=== PATIENT | male | born 1955 | race Caucasian/White ===

== ENCOUNTER 2018-11-19 08:32 | Outpatient (CLI) | payer BC, SELFPAY ==
[2018-11-19 09:52] LABS: HCT 44.3 % (40.0-50.0); HGB 15.2 g/dL (13.5-17.5); Mean Corp. HGB Concentration 34.3 g/dL (32.0-36.0); Mean Corpuscular Hemoglobin 30.2 pg (27.0-33.0); Mean Corpuscular Volume 87.9 fL (80-95); Mean Platelet Volume 9.9 fL (8.0-11.0); Platelet Count 207 x1000/uL (130-400); RBC 5.04 m/cumm (4.50-6.00); RBC Distribution Width 13.9 % (11.8-14.1); White Blood Cell Count 4.53 k/cumm (4.4-10.8)
[2018-11-19 10:09] LABS: ALT 22 U/L (12-78); AST 17 U/L (15-37); Albumin 3.9 g/dL (3.4-5.0); Alkaline Phosphatase 32 U/L (46-116); Anion Gap 6.7 mmol/L (3-11); BUN 20 mg/dL (7-18); Bilirubin, Total 0.9 mg/dL (0.2-1.0); CO2 31.3 mmol/L (21.0-32.0); CREATININE 1.03 mg/dL (0.70-1.30); Calcium 9.3 mg/dL (8.5-10.1); Chloride 107 mmol/L (98-107); Cholesterol 178 mg/dL (50-200); Glucose 89 mg/dL (70-100); HDL Cholesterol 50 mg/dL (40-60); LDL CHOLESTEROL 118 mg/dL (<100); Potassium 4.4 mmol/L (3.5-5.1); Sodium 145 mmol/L (136-145); Total Protein 6.6 g/dL (6.4-8.2); Triglyceride 56 mg/dL (30-150)
== END 2018-11-19 08:52 ==
PROVIDERS: PCP Nurse Practitioner; Visit Provider Nurse Practitioner
DX: Z00.00 Encounter for general adult medical examination without abnormal findings (principal); E78.00 Pure hypercholesterolemia, unspecified
CPT/HCPCS: 36415; 80053; 80061; 83721; 85027

== ENCOUNTER 2019-02-21 09:13 | Day surgery (SDC) | payer BC, SELFPAY ==
--- NOTE | 2019-02-21 06:59 | W.COLOREPORT ---
Date of service: 02/21/19 Time of Service: 10:01 Colonoscopy Report Date of procedure: 02/21/19 Pre-op diagnosis general: Positive Cologuard Post-op diagnosis procedure note: other (colorectal polyps x3) Procedure: Colonoscopy with polypectomy Surgeon: Beverly Barry Anesthesia proc note operative: other (General/ ASA 2/ Carlos Walsh CRNA) Estimated blood loss (mL): 3 Pathology: other (Ascending colon P, Transverse Polyp, rectal polyp) Complications: None Disposition: no change Indications: Mr. Fernandes is a pleasant 63 year old female who is here today for a colonoscopy. He had a Cologuard test which was positive. Risks, benefits and complications have been reviewed. Complications include but are not limited to bleeding, pain, perforation, missed small lesion/polyp, sore throat, aspiration and adverse reaction to the medications. Questions were entertained and answered to their satisfaction and they wished to proceed. No guarantees were given or implied. Prep: Miralax/Dulcolax Procedure Start Time: 10:01 Procedure End Time: 10:32 Retraction Time: 23 minutes Findings: # polyps found. Procedure Description: After informed consent was obtained the patient was taken to the procedure room and placed in a left decubitous position. Monitors were applied and a time out was done. The patients name, date of , procedure, allergies to medications and metal in their body was reviewed. The patient was then sedated. Once sedated and comfortable a rectal exam was done. External exam was normal. Internal exam revealed a normal sphincter tone and no palpable masses. The prostate felt smooth. The scope was then introduced and retro-flexed. Grade 1 internal hemorrhoids were identified. There was one rectal polyp identified. The scope was then advanced to the cecum without difficulty. The TI and appendiceal orifice were identified. The prep was adequate. The scope was then slowly retracted over 23 minutes back into the rectum. Polyps were removed with cold forceps in the Transverse colon and rectum and with a hot snare in the Ascending colon. The scope was removed and the patient was woken up and taken back to Same day surgery in stable condition. The patient tolerated the procedure well and there were no immediate complications. Follow up: The patient should follow up in 3-5 years unless they develop changes in bowel habits or other new gastrointestinal complaints.
--- NOTE | 2019-02-21 07:01 | W.PM.DSUDISC ---
Discharge Plan Disposition Patient Disposition: HOME Condition: Good Discharge Details Reason For Visit: Colonoscopy Attending Provider: Beverly Barry Primary Care Provider: Bee Velazquez Home Meds and New Rx's Prescriptions: Continued Lumigan 0.01 % drops 1 drp OP QPM RF: 0 Discontinued polyethylene glycol 3350 17 gram/dose powder 238 g PO ONCE Qty: 238 RF: 0 bisacodyl [Dulcolax (bisacodyl)] 5 mg tablet,delayed release (DR/EC) 5 mg PO ONCE Qty: 4 RF: 0 Discharge Instructions Instructions: Colonoscopy (DC), Colorectal Polyps (DC), Hemorrhoids (DC) Activity:: Activity as Tolerated Diet:: High Fiber Diet Discharge Orders Discharge Orders: Discharge Order (Routine); Ordered 02/21/19 Ordered By: Beverly Barry DS: Diagnosis Discharge Diagnosis (1) S/P colonoscopy: Status: Acute (2) Colorectal polyps: Status: Acute (3) Internal hemorrhoids without complication: Status: Acute
[2019-02-21 09:28] VITALS: BP 111/76; PULSE 87; RESP 16; TEMP 36.5; O2SAT 100
[2019-02-21] MEDS: Lactated Ringers 1,000 ML 80 ML IV (09:30)
[2019-02-21 09:34] VITALS: BP 111/76; PULSE 87; RESP 16; TEMP 36.5; O2SAT 100
--- NOTE | 2019-02-21 10:08 | BOWEL_PTH ---
PATIENT: Kentrell Fernandes JR LOC: [facility] U#:[id number] AGE/SX: 63/M ROOM: RE02/21/[address]: Beverly Barry MD : 1955 BED: DIS: 02/21/2019 SPEC #: [id number] RECD: 02/21/19 12:58 STATUS: THAO REQ #: [id number] FREDY: 02/21/19 10:[address]: Beverly Barry DEPT: Surgical Specimen RECD BY: Michelle Arriola ENTERED: 02/21/19 12:59 SP TYPE: Bowel OTHR DR: Bee Velazquez APRN Tissues: 1 - BIOPSY BOWEL 2 - BIOPSY BOWEL 3 - BIOPSY BOWEL Procedures: GROSS AND MICRO LEVEL 4 Comments: [id number]
[2019-02-21 11:05] VITALS: BP 108/66; PULSE 62; RESP 16; TEMP 35.9; O2SAT 99
== END 2019-02-21 11:44 | disposition home or self-care (01) ==
LOC: SUR 09:14
PROVIDERS: PCP Nurse Practitioner; Visit Provider Surgery
PROC: 0DJD8ZZ Inspection of Lower Intestinal Tract, Via Natural or Artificial Opening Endoscopic (ICD-10-PCS; CPT 45378; principal; 2019-02-21 10:30)
DX: Z12.11 Encounter for screening for malignant neoplasm of colon; R19.5 Other fecal abnormalities; K64.0 First degree hemorrhoids; D12.2 Benign neoplasm of ascending colon; D12.3 Benign neoplasm of transverse colon; D12.8 Benign neoplasm of rectum
CPT/HCPCS: 45385; 45380; 88305

== ENCOUNTER 2022-04-23 03:22 | Outpatient (CLI) | payer MEDICARE, OTHER, SELFPAY ==
[2022-04-23 08:58] LABS: ALT 37 U/L (16-63); AST 20 U/L (15-37); Alkaline Phosphatase 29 U/L (46-116); BUN 20 mg/dL (7-18); Bilirubin, Total 0.9 mg/dL (0.2-1.0); CREATININE 0.9 mg/dL (0.70-1.30); Calculated LDL 121 mg/dL (<100); Chloride 107 mmol/L (98-107); Cholesterol 195 mg/dL (<200); Glucose 93 mg/dL (74-106); HDL Cholesterol 60 mg/dL (40-60); Potassium 3.9 mmol/L (3.5-5.1); Sodium 143 mmol/L (136-145); Total Protein 6.9 g/dL (6.4-8.2); Triglyceride 71 mg/dL (<150)
== END 2022-04-23 03:23 | disposition home or self-care (01) ==
LOC: LBO 03:22
PROVIDERS: PCP Nurse Practitioner; Visit Provider Nurse Practitioner
DX: E78.5 Hyperlipidemia, unspecified (principal); R42 Dizziness and giddiness; Z13.220 Encounter for screening for lipoid disorders
CPT/HCPCS: 36415; 80053; 80061

== ENCOUNTER → 2022-05-13 00:54 | Outpatient (CLI) | payer MEDICARE, OTHER, SELFPAY ==
--- NOTE | 2022-05-13 06:45 | DI.US_ITS ---
Exam(s) US AAA SCREENING EXAM: US AAA SCREENING CLINICAL HISTORY: screen AAA, Z13.6, encounter for screening cardiovascular disorder TECHNIQUE: Ultrasound performed using standard protocol. COMPARISON: No exams were available for comparison FINDINGS: Ultrasound examination of the abdomen was performed utilizing limited protocol for evaluation of abdo mansi aorta. There is no abdominal aortic aneurysm. Right and left common iliac artery are within n ormal limits in diameter. There is no retroperitoneal fluid collection. IMPRESSION: No evidence of abdominal aortic aneurysm. DATA REPOSITORY:
== END ==
PROVIDERS: PCP Nurse Practitioner; Visit Provider Nurse Practitioner
DX: Z13.6 Encounter for screening for cardiovascular disorders (principal)
CPT/HCPCS: 76706

== ENCOUNTER → 2022-07-16 13:39 | Outpatient (BNVA) | payer MEDICARE, OTHER, SELFPAY | PROVIDERS: PCP Nurse Practitioner; Referring Provider Nurse Practitioner; Visit Provider Surgery | DX: K61.1 Rectal abscess (principal) | CPT/HCPCS: 10060; 99203 ==

== ENCOUNTER → 2022-08-21 14:23 | Outpatient (BNVA) | payer MEDICARE, OTHER, SELFPAY | PROVIDERS: PCP Nurse Practitioner; Referring Provider Nurse Practitioner; Visit Provider Physical Therapy Assistant | DX: Z12.11 Encounter for screening for malignant neoplasm of colon (principal); Z86.010 Personal history of colon polyps ==

== ENCOUNTER 2022-09-04 10:35 | Day surgery (SDC) | payer MEDICARE, OTHER, SELFPAY ==
--- NOTE | 2022-09-03 16:22 | W.PM.DSUDISC ---
Date of service: 09/04/22 Time of Service: 12:48 Discharge Plan Disposition Patient Disposition: Home Condition: Good Discharge Details Reason For Visit: Screening colonoscopy Attending Provider: Leo Fletcher Primary Care Provider: Bee Velazquez Home Meds and New Rx's Prescriptions: Continued latanoprost 0.005 % drops 1 drp ophthalmic (eye) DAILY Rx Instructions: both eyes for glucoma bisacodyl [Dulcolax (bisacodyl)] 5 mg tablet,delayed release (DR/EC) 5 mg PO ONCE Qty: 4 0RF Rx Instructions: take per colonoscopy instructions Discontinued polyethylene glycol 3350 17 gram/dose powder 238 g PO ONCE Qty: 238 0RF Rx Instructions: take per colonoscopy instructions bisacodyl [Dulcolax (bisacodyl)] 5 mg tablet,delayed release (DR/EC) 5 mg PO ONCE Qty: 4 0RF Rx Instructions: take per colonoscopy instructions polyethylene glycol 3350 17 gram/dose powder 238 g PO ONCE Qty: 238 0RF Rx Instructions: take per colonoscopy instructions Discharge Instructions Instructions: Hemorrhoids (GEN), Colorectal Polyps (DC) Additional Instructions: 1. If tolerated, consume a soft, low fiber diet for 1-2 days. 2[address] Do not drive, drink alcohol, operate machinery, make critical decisions, or do activities that require coordination or balance for 24 hours. 3. Because air was put into your colon during the procedure, expelling air from your rectum (passing gas or farting) is normal. 4. You may not have a bowel movement for 1-3 days because of the colonoscopy prep. This is normal. 5. Go directly to the emergency room if you notice any of the following: Develop chills (warm to touch), or if you have a thermometer and your temperature is above 101 Difficulty breathing or difficultly swallowing Persistent vomiting Severe abdominal pain, other than gas cramps Severe chest pain Black, tarry stools Any bleeding ? exceeding one tablespoon 6. Call your physician if the site where your intravenous was started becomes red, swollen, painful, and warm to touch. 7. Your physician has reviewed your pre-procedure medications. Please continue to take those medications as previously ordered. You will be given specific information/education regarding any changes to your medications before leaving. Activity:: Activity as Tolerated Diet:: As Tolerated Discharge Orders Discharge Orders: Discharge Order (Routine); Ordered 09/03/22 Ordered By: Leo Fletcher DS: Diagnosis Discharge Diagnosis (1) Colorectal polyps: Status: Acute Asessment and Plan: I will contact you with results of the pathology report on the 2 polyps once that is available. You have some internal hemorrhoids, continue with basic hemorrhoid care.
--- NOTE | 2022-09-03 16:23 | W.COLOREPORT ---
Date of service: 09/04/22 Time of Service: 12:48 Colonoscopy Report Date of procedure: 09/04/22 Pre-op diagnosis general: Routine health maintenance screening colonoscopy Procedure: Colonoscopy Surgeon: Leo Fletcher Anesthesia Type: General:No Airway Complications: None Disposition: same day Prep: Miralax/Dulcolax Procedure Start Time: 12:13 Procedure End Time: 13:38 Retraction Time: 14 Findings: Internal hemorrhoid, polyps at 45 cm and 20 cm Procedure Description: After the induction of monitored anesthetic care, and with the patient in left lateral decubitus position, I began by performing an anorectal exam under anesthesia.? Perineum and skin were normal, as was the anal verge.? There was no evidence of external hemorrhoids.? There was a prolapsed internal hemorrhoid that was easily reduced. I performed a digital rectal exam and felt the internal hemorrhoid. Otherwise it felt normal. Next, using a fiberoptic anoscope, I completely examined the anal verge dentate line and distal rectum. Aside from the hemorrhoid, there was no other pathology. I did not see any evidence of fistula in ano.? Next, I advanced a colonoscope into the rectal vault.? I performed retroflexion.? Again, there was a dominant internal hemorrhoid in the right posterior column.? Using insufflation, I then advanced the colonoscope beyond the rectal folds and into the sigmoid colon before advancing towards the cecum.? The quality of the prep was asked.? The scope was noted to be in the cecum by identification of the ileocecal valve and appendiceal orifice.? I then began withdrawing the colonoscope using repeated irrigation as necessary for full evaluation of the colonic mucosa. Around 45 cm from the anal verge I identified a 0.25 cm polyp. ?It appeared sessile in character. ?I was able to remove this with a cold forcep polypectomy. ?I examined the site, and there was minimal bleeding. ?Once this was completed, I continued to withdraw the scope and examine the remainder of the colonic mucosa.?Around 20 cm from the anal verge I identified a 0.5 cm polyp. ?It appeared pedunculated in character. ?I was able to remove this with a cold forcep polypectomy. ?I examined the site, and there was minimal bleeding. ?Once this was completed, I continued to withdraw the scope and examine the remainder of the colonic mucosa. Once the scope was withdrawn to the level of the rectum, great care was taken to examine portions of the rectal folds.? Finally, the scope was withdrawn and the patient was brought to the same-day surgery recovery unit as the anesthetic wore off. ?The findings and instructions were shared with the patient prior to discharge.
[2022-09-04 11:02] VITALS: BP 126/79; PULSE 70; RESP 16; TEMP 36.3; O2SAT 99
--- NOTE | 2022-09-04 11:37 | W.ANESPRE ---
General Info Date of Service Date Performed: 09/04/22 Height: 5 ft 9 in Weight: 74.6 kg Body Mass Index (BMI): 24.3 Surgical Procedure: Operation Date: 09/04/22 12:10 Proposed Procedure Side Surgeon p Exam Under Anesthesia Leo Fletcher MD s Colonoscopy Leo Fletcher MD Meds Allergies and Home Medications Allergies Allergy/AdvReac Type Severity Reaction Status Date / Time No Known Drug Allergies Allergy Verified 09/04/22 11:02 Home Medication Medication Instructions Recorded latanoprost 0.005 % eye drops 1 drp ophthalmic (eye) DAILY 04/16/22 bisacodyl 5 mg tablet,delayed 5 mg PO ONCE colonscopy bowel prep 08/25/22 release (Dulcolax (bisacodyl)) #4 tabs Current Visit Medications: Current Medications Generic Name Dose Route Start Last Admin Trade Name Freq PRN Reason Stop Dose Admin Hyoscyamine Sulfate 0.125 mg 09/03/22 16:24 Hyoscyamine 0.125 Mg Sl/Oral/Chew SL DIRECTED PRN Ringer's Solution 1,000 mls @ 80 mls/hr 09/04/22 06:00 IV 10/03/22 23:59 INFUSION [facility] IV Miscellaneous Supplies 1 each 09/04/22 06:00 Iv Access IV 10/03/22 23:59 DIRECTED [place] Ondansetron HCl 4 mg 09/03/22 16:24 Ondansetron 4 Mg/2 Ml Vial IVP Q4H PRN PRN Nausea / Vomiting Sodium Chloride 0 ml 09/04/22 06:00 Normal Saline Flush 10 Ml Syr IV 10/03/22 23:59 PRN PRN Sodium Chloride 0 ml 09/04/22 06:00 Normal Saline 10 Ml Vial IJ 10/03/22 23:59 DIRECTED PRN Sterile Water 0 ml 09/04/22 06:00 Water,Injection,Sterile 10 Ml Vial IJ 10/03/22 23:59 DIRECTED PRN PFSH Active Problems Active Problems: Problem Status Onset Code 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 Encounter for routine history and physical examination Z00.00 Tubular adenoma 02/2019 D36.9 Internal hemorrhoids without complication K64.8 Colorectal polyps K63.5 S/P colonoscopy ~02/21/19 Z98.890 Positive colorectal cancer screening using Cologuard test R19.5 Glaucoma H40.9 Disequilibrium 09/03/15 R42 Hyperlipidemia 02/15/13 E78.5 Sensorineural hearing loss, bilateral 09/03/15 H90.3 Medical History Medical History 4-quinolones overdose (02/15/13) Recovering alcoholic in remission Surgical History Surgical History Hx of hernia repair Tobacco Smoking/Tobacco Use Status: Never Alcohol Alcohol Intake: former Year quit: Substance Use Substance use: Never Substance use type: does not use Vital Signs and Lab Results Vital Signs Most Recent Vital Signs in EMR: Most Recent Vital Signs Temp Pulse Resp BP Pulse Ox 36.3 C L 70 16 126/79 99 09/04/22 11:02 09/04/22 11:02 09/04/22 11:02 09/04/22 11:02 09/04/22 11:02 Lab Results Blood Type / Crossmatch: No Data to Display Complete Blood Count: No Data to Display Complete Metabolic Panel: No Data to Display Liver Function Panel: No Data to Display Coagulation Panel: No Data to Display Cardiac Panel: No Data to Display Arterial Blood Gas: No Data to Display Venous Blood Gas: No Data to Display Pancreas Panel: No Data to Display Thyroid Panel: No Data to Display Infectious Disease: No Data to Display Blood Cultures: No Data to Display Toxicology Panel: No Data to Display Anesthesia Assessment and Plan Anesthesia History Personal History: No History of Anesthesia Complications Family History: No Family History of Anesthesia Complications Exercise Tolerance Exercise Tolerance: Metabolic Equivalents>4 Pertinent Negatives Pertinent Negatives: No Symptoms of GERD, No Major Cardiovascular Symptoms or Complaints and No Major Pulmonary Symptoms or Complaints Cardiac & Pulmonary Exam Cardiac Exam: Normal S1/S2 Heart Sounds Pulmonary Exam: Clear Bilateral Breath Sounds Implantable Cardiac Device Does patient have a Pacemaker or an ICD?: No Airway Exam Known Difficult Airway: No Mallampati Class: 2 Mouth Opening: Normal (> 3cm) Thyromental Distance: Greater than 3 cm Neck Range of Motion: Full ROM Neck Circumference: Normal Teeth Condition: Normal Dentition ASA Classification ASA Score: ASA 2 Emergency Case?: No NPO Status NPO Status: NPO Clears >2 hours, Solids >8 hours Anesthesia Plan Resuscitation Status: Full Code Anesthesia Technique: General Anesthesia Airway Planned: Natural Airway Monitors Used: Standard Monitors
[2022-09-04 11:40] VITALS: BMI 24.3
[2022-09-04] MEDS: Lactated Ringers 1,000 ML 80 ML IV (11:50)
--- NOTE | 2022-09-04 12:31 | BOWEL_PTH ---
PATIENT: Kentrell Fernandes JR LOC: [facility] U#:[id number] AGE/SX: 67/M ROOM: RE09/04/[address]: Leo Fletcher MD : 1955 BED: DIS: 09/04/2022 SPEC #: [id number] RECD: 09/04/22 13:02 STATUS: THAO RE #: [id number] FREDY: 09/04/22 12:[address]: Leo Fletcher DEPT: Surgical Specimen RECD BY: Michelle Arriola ENTERED: 09/04/22 13:03 SP TYPE: Bowel OTHR DR: Bee Velazquez APRN Tissues: 1 - BIOPSY BOWEL 2 - BIOPSY BOWEL Procedures: GROSS AND MICRO LEVEL 4 Comments: [id number]
[2022-09-04 12:45] VITALS: BP 108/77; PULSE 60; RESP 16; TEMP 36.4; O2SAT 98
[2022-09-04 13:07] VITALS: BP 124/86; PULSE 52; RESP 16; TEMP 36.4; O2SAT 99
--- NOTE | 2022-09-04 13:09 | W.ANESPOSTOP ---
Postoperative Evaluation Date, Time and Location Date Performed: 09/04/22 Time Performed: 13:05 Patient Location: Day Surgery Unit Vital Signs Most Recent Imported Vital Signs: Most Recent Vital Signs Temp Pulse Resp BP Pulse Ox 36.4 C L 60 16 108/77 98 09/04/22 12:45 09/04/22 12:45 09/04/22 12:45 09/04/22 12:45 09/04/22 12:45 Pain Score Most Recent Pain Score: Most Recent Pain Score Pain Level 0 09/04/22 12:45 Assessment Mental Status: Awake (Alert & Oriented to Patient Baseline) Airway and Respiratory Function: Patent airway with normal (patient baseline) respiratory exam Cardiovascular Function: Hemodynamically Stable Hydration Status: Adequately Hydrated Nausea & Vomiting: No Nausea or Vomiting Pain: Pt. Denies Any Pain Peripheral Nerve Block: Patient did not receive a nerve block Postoperative Comments:: Left AC IV site re-assessed. Soft and non-tender.
== END 2022-09-04 13:40 | disposition home or self-care (01) ==
PROVIDERS: PCP Nurse Practitioner; Visit Provider Surgery
PROC: (CPT 45380; principal; 2022-09-04 12:00)
PROC: 0DJD8ZZ Inspection of Lower Intestinal Tract, Via Natural or Artificial Opening Endoscopic (ICD-10-PCS; CPT 45378; 2022-09-04 12:00)
DX: Z12.11 Encounter for screening for malignant neoplasm of colon (principal); K63.5 Polyp of colon; K64.8 Other hemorrhoids
CPT/HCPCS: 45380; 88305

== ENCOUNTER 2023-01-09 20:00 | Observation (INO) | payer MEDICARE, SELFPAY ==
[2023-01-09] VITALS (30 sets, daily range): BP systolic 126–164; BP diastolic 70–88; PULSE 62–87; RESP 11–27; TEMP 36.3; O2SAT 97–99
--- NOTE | 2023-01-09 20:00 | RT.EKG_ITS ---
APPROVED REPORT Exam: Resting ECG Reason for Exam: [facility] Patient Location: E HR:80 bpm ECG Measurements Heart Rate 80 AXIS MD 180 P 76 QRSd 84 QRS 70 QT 391 T 37 QTc 451 Conclusion Sinus rhythm...normal P axis, V-rate 60- 99 Probable anterolateral infarct, old...Q>35mS, abnrm ST-T, V2-V6,I,aVL. Sinus. Normal axis. No STEMI. I have reviewed and interpreted ECG and agree with software generated interpretation.
--- NOTE | 2023-01-09 20:15 | DI.CT_ITS ---
Exam(s) CT BRAIN NECK CTA EXAM: CT BRAIN NECK CTA CLINICAL HISTORY: ams, confusion, resolving. TECHNIQUE: Imaging Protocol: Axial CT angiography was performed with multi-slice acquisition and mu lti-planar and/or 3D reconstructions. CONTRAST MATERIAL: Intravenous: Omnipaque 350 contrast volume:100 mL COMPARISON: No exams were available for comparison FINDINGS: CT Head W/O and W: Ventricles and Extra axial spaces: Normal in size and morphology for the patient's age. Hemorrhage: None. Cerebral parenchyma: There is no evidence of an acute territorial infarct. Midline shift: None. Brainstem/Cerebellum: Normal. Calvarium: Normal. Visualized Paranasal sinuses/Mastoids: There is a small mucous retention cyst or polyp in the right m axillary sinus. The remaining visualized paranasal sinuses and mastoid air cells are clear. Soft Tissues: Unremarkable. Enhancement: Unremarkable. CTA Neck W: Common Carotid: Right: No dissection, occlusion or significant stenosis. Left: No dissection, occlusion or significant stenosis. Mild atherosclerosis in the distal common ca rotid artery. External Carotid: Right: No occlusion or significant stenosis. Left: No occlusion or significant stenosis. Internal Carotid: Right: No dissection, occlusion or significant stenosis. Mild atherosclerosis at the origin of the r ight internal carotid artery. Left: No dissection, occlusion or significant stenosis. Vertebral Artery: Right: No dissection, occlusion or significant stenosis. Left: No dissection, occlusion or significant stenosis. Lung Apices: Normal. Bones: Within normal limits for the patient's age. Soft Tissues: Normal. Thyroid gland: Unremarkable. CTA Brain W: Internal Carotid Arteries: Mild atherosclerosis on the right. No aneurysm, occlusion or significant stenosis. Anterior Cerebral Arteries: Right: No aneurysm, occlusion or significant stenosis. Left: No aneurysm, occlusion or significant stenosis. Middle Cerebral Arteries: Right: No aneurysm, occlusion or significant stenosis. Left: No aneurysm, occlusion or significant stenosis. Posterior Cerebral Arteries: Right: No aneurysm, occlusion or significant stenosis. Left: No aneurysm, occlusion or significant stenosis. Vertebral Arteries: Right: No aneurysm, occlusion or significant stenosis. Left: No aneurysm, occlusion or significant stenosis. Basilar Artery: No aneurysm, occlusion or significant stenosis. IMPRESSION: 1. No large vessel occlusion or significant stenosis on the CT angiography of the head. 2. No acute intracranial process. 3. No occlusion or significant stenosis on the CT angiography of the neck. RADIATION DOSE DELIVERED: 2,244.57mGy.cm Total DLP DATA REPOSITORY: All CT scans at this facility are submitted to the National Radiology Data Registry (NRDR) Dose Index Registry (DIR) with the [employer] (A[employer]). RADIATION OPTIMIZATION: All CT scans at this facility use at least one of these dose optimization te chniques: automated exposure control; mA and/or kV adjustment per patient size (includes targeted exa ms where dose is matched to clinical indication); or iterative reconstruction.
--- NOTE | 2023-01-09 20:15 | DI.RAD_ITS ---
Exam(s) XR CHEST 2V PA LATERAL EXAM: XR CHEST 2V PA LATERAL CLINICAL HISTORY: ams TECHNIQUE: 2D digital imaging was performed of the chest. Two images were obtained. PA and lateral views were obtained. COMPARISON: No exams were available for comparison FINDINGS: MEDIASTINUM: Normal. HEART: Normal. PULMONARY VASCULATURE: Normal. LUNGS: Clear. PLEURAL SPACE: No pleural effusion or pneumothorax. BONE:Within normal limits for the patient's age. OTHER FINDINGS:Normal. IMPRESSION: No acute pulmonary findings. DATA REPOSITORY: RADIATION DOSE DELIVERED:
--- NOTE | 2023-01-09 20:20 | W.ED.GENAD ---
Discharge Plan Discharge Details Chief Complaint: AMS/LOC Clinical Impression: Amnesia Primary Care Provider: Bee Velazquez ED Provider: Jin Arguelles Home Meds and New Rx's Prescriptions: No Action latanoprost 0.005 % drops 1 drp ophthalmic (eye) DAILY Rx Instructions: both eyes for glucoma bisacodyl [Dulcolax (bisacodyl)] 5 mg tablet,delayed release (DR/EC) 5 mg PO ONCE Qty: 4 0RF Rx Instructions: take per colonoscopy instructions Discharge Instructions Instructions: Transient Global Amnesia (ED) Additional Instructions: Please follow-up with neurology early next week. Please return to the emergency department for any worsening symptoms Medical Decision Making 67-year-old male presents brought in by for evaluation of confusion that noted around 6 PM when she came home this evening last known normal unknown, patient recently started biking exercise regimen and was biking earlier today. Denies injury denies headache. Patient is afebrile nontoxic slightly hypertensive fingerstick in the 80s; cranial nerves II through XII intact 5 and 5 strength upper and lower extremities, normal speech, patient is alert to self time and place, no evidence of ataxia. Patient resting comfortably calm cooperative. Per symptomatology seems to be improving. Initially she had to remind him every 10 minutes of details that she had just described. Consider transient global amnesia versus TIA versus less likely CVA lower suspicion for encephalitis or meningitis lower suspicion for intoxication metabolic process or infectious process. Given age and symptomatology will obtain CT CTA head and neck. Labs EKG chest x-ray close reassessment of symptoms likely close follow-up with neurology pending for resolution 22: 13 patient resting for no acute distress. Continued improvement per patient family and patient. Mildly elevated troponin without chest pain or shortness of breath, nonischemic EKG. CT largely unremarkable, bilateral carotid stenosis noted. Will obtain second troponin. Will reassess symptomatology. If stable or downtrending troponin asymptomatic and neurologically intact consider close follow-up with neurology. HPI General Date/Time Provider Initiated Documentation: 01/09/23 20:02. HPI Narrative: 67-year-old male presents with resolving altered mental status, noted patient was confused when she arrived home at 6 PM this evening unknown last normal, patient had recently started biking again had to go on a bike ride earlier in the evening. Patient's had to remind him multiple times where she was. No headache no nausea vomiting no chest pain or shortness of breath no weakness no numbness no history of CVA/TIA. 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 Per patient symptoms seem to be improving patient himself does not subjectively feel confused Related Data Home Medications Medication Instructions Recorded Confirmed latanoprost 0.005 % eye drops 1 drp ophthalmic (eye) DAILY 04/16/22 09/04/22 bisacodyl 5 mg tablet,delayed 5 mg PO ONCE colonscopy bowel prep 08/25/22 release (Dulcolax (bisacodyl)) #4 tabs Previous Rx's Medication Instructions Recorded bisacodyl 5 mg tablet,delayed 5 mg PO ONCE colonscopy bowel prep 08/25/22 release (Dulcolax (bisacodyl)) #4 tabs Allergies Allergy/AdvReac Type Severity Reaction Status Date / Time No Known Drug Allergies Allergy Verified 09/04/22 11:02 General Stated Complaint: AMS/LOC JACQUELINE: 2 Review of Systems Narrative: Review of Systems Constitutional: negative Eyes: negative ENT: negative Cardiovascular: negative Respiratory: negative Gastrointestinal: negative : negative Musculoskeletal: negative Skin: negative Neurologic: Confusion Psych: negative PFSH All Active Problems (Updated 01/09/23 @ 23:21 by Jin Arguelles MD) Amnesia (Acute) Araceli-rectal abscess (Acute) Encounter for routine history and physical examination (Acute) Tubular adenoma (Acute 02/2019) fragments of tubular adenoma-transverse colon fragments of inflamed tubular adenoma-rectum superficial fragments of inflamed tubulovillous adenoma Internal hemorrhoids without complication (Acute) Colorectal polyps (Acute) S/P colonoscopy (Acute ~02/21/19) Positive colorectal cancer screening using Cologuard test (Acute) Glaucoma (Chronic) diagnosed [facility] now Disequilibrium (Acute 09/03/15) Pt states that was 2 years ago, and currently does not have. Hyperlipidemia (Acute 02/15/13) Sensorineural hearing loss, bilateral (Acute 09/03/15) Medical History (Updated 01/09/23 @ 23:21 by Jin Arguelles MD) 4-quinolones overdose (02/15/13) Recovering alcoholic in remission Surgical History (Updated 09/29/22 @ 13:30 by Radha Panda RN) History of colonoscopy (~09/2022) Hx of hernia repair Social History Smoking/Tobacco Use Status: Never Smoking risk assessment performed?: Yes Alcohol Intake: former Year quit: Drug use: Never Substance use type: does not use Adopted: No Caregiver/Support person: No Foster care: No Household members: spouse Number of Children: 0 Education Level: high school Do you need help understanding health information?: Rarely 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 Pets and animals: Yes Pets and animals: dog(s) Sexually active: Yes Do you think of yourself as: straight/heterosexual Current gender identity: male What is your relationship status?: How often do you talk on the phone with friends or family?: once per week Do you belong to any clubs or organized social groups?: yes Panel score (0-1 are the most socially isolated patients): 2 What type of physical activity do you participate in: walking, bicycling and other Details: snowshoes in winter Duration: 30-45 minutes/day Frequency: daily Peggy/Christian: Druze Special peggy needs: No Seatbelt use: always Helmet use: Yes Drive intox or ride w/intox peg driver: No Working smoke detector in home: Yes Fire extinguisher in home: Yes Carbon monox detector in home: Yes Do you feel safe at home: Yes Do you feel safe in your relationship?: Yes Exam Narrative Exam Narrative: Physical Examination General: alert, awake, cooperative, resting comfortably, no acute distress HEENT: normocephalic, atraumatic; PERRL, EOM intact, conjunctiva normal; no nasal discharge; moist mucous membranes, oral and pharyngeal mucosa normal, tolerating secretions Neck: supple, trachea midline; full ROM Chest: normal to inspection Respiratory: normal respiratory effort, speaking in full sentences, clear to auscultation, no wheezing, rales or rhonchi Cardiac: regular rate, regular rhythm, S1S2 intact, no murmurs rubs or gallops GI: abdomen soft, non-tender, non-distended; no palpable mass or hepatosplenomegaly Skin: no lesions, rashes or trauma appreciated Neuro: AAOx3, normal speech, moving all extremities; 5 out of 5 strength upper and lower extremities; cranial nerves II through XII intact, no ataxia Psych: Calm, cooperative Course Vital Signs Vital signs: Vital Signs Temperature 36.3 C L 01/09/23 20:07 Pulse 77 01/09/23 20:07 Respiratory Rate 13 01/09/23 20:07 Blood Pressure 164/87 H 01/09/23 20:07 Pulse Oximetry 99 01/09/23 20:07 Temperature 36.3 C L 01/09/23 20:07 Temperature Source Temporal Artery Scan 01/09/23 20:07 Pulse 77 01/09/23 20:07 Respiratory Rate 13 01/09/23 20:14 Respiratory Effort Normal, Non-Labored 01/09/23 20:14 Respiratory Depth Normal 01/09/23 20:14 Respiratory Pattern Normal 01/09/23 20:14 Blood Pressure 164/87 H 01/09/23 20:07 Blood Pressure Position Supine 01/09/23 20:07 Pulse Oximetry 99 01/09/23 20:07 Pain Level 0 01/09/23 20:07
[2023-01-09 20:24] LABS: Abs Immature Grans 0.03 10^3/uL (0.0-0.06); Absolute Basophil Count 0.03 10^3/uL (0.0-0.2); Absolute Eosinophil Count 0.03 10^3/uL (0.0-0.7); Absolute Lymphocyte Count 1.45 10^3/uL (1.2-3.4); Absolute Monocyte Count 0.51 10^3/uL (0.1-0.8); Absolute Neutrophil Count 6.47 10^3/uL (1.2-6.7); Basophils % 0.4; Eosinophils % 0.4; HCT 44.6 % (40.0-50.0); HGB 15.2 g/dL (13.5-17.5); Immature Grans % 0.4; MCH 30.3 pg (27.0-33.0); MCHC 34.1 % (32.0-36.0); MCV 89 fL (80-95); MPV 8.7 fL (8.0-11.0); Neutrophils % 75.8; Platelet Count 221 10^3/uL (130-400); RBC 5.02 10^6/uL (4.36-5.78); RDW 14.4 % (11.8-14.1); RDW-SD 46.1 fL; WBC 8.52 10^3/uL (4.4-10.8)
[2023-01-09] MEDS: Omnipaque 350 MG/ML 100 ML BTL IJ (20:28)
[2023-01-09] MEDS: Normal Saline - Diluent 50 ML VIAL IJ (20:29)
[2023-01-09 20:48] LABS: ALT 29 U/L (16-63); AST 32 U/L (15-37); Albumin 4.3 g/dL (3.4-5.0); Alkaline Phosphatase 52 U/L (46-116); Anion Gap 7.5 mmol/L (3-11); BUN 19 mg/dL (7-18); Bilirubin, Total 0.6 mg/dL (0.2-1.0); CO2 27.5 mmol/L (21.0-32.0); Calcium 9.4 mg/dL (8.5-10.1); Chloride 106 mmol/L (98-107); Estimated GFR 83.52 (mL/min/1.73m2); Glucose 105 mg/dL (74-106); Potassium 4.5 mmol/L (3.5-5.1); Sodium 141 mmol/L (136-145); Total Protein 7.6 g/dL (6.4-8.2)
[2023-01-09 20:55] LABS: ETHANOL BLOOD < 3.0 mg/dL (<10)
[2023-01-09 20:56] LABS: Troponin I 99 ng/L (<or=60)
[2023-01-09 21:00] LABS: Bilirubin Negative (Negative); Blood Trace-intact (Negative); Clarity Clear (Clear); Glucose Negative (Negative); Ketones Negative (Negative); Leukocyte Esterase Negative (Negative); Nitrite Negative (Negative); Urobilinogen 0.2 mg/dL (Up to 0.2)
[2023-01-09 21:09] LABS: Bacteria Negative HPF (Negative); C & S Indicated? No; Casts Negative LPF (Negative); Crystals Negative HPF (Negative); Epithelial Cells Rare HPF (Negative); Mucus Negative (Negative); RBC 0-2 HPF (0-2); WBC 0-2 HPF (0-5)
[2023-01-09 21:17] LABS: PTT Activated 26.5 sec (21.5-31.9); Prothrombin Time 10.4 sec (9.3-11.0)
--- NOTE | 2023-01-09 21:19 | DI.VRAD_ITS ---
PROCEDURE INFORMATION: Exam: CTA Head Without And With Contrast, Arteriography Exam date and time: 01/09/2023 8:26 PM Age: 67 years old Clinical indication: Stroke-like symptoms; Other: AMS, confusion, resolving TECHNIQUE: Imaging protocol: Computed tomographic angiography of the head without and with contrast. Exam focused on the arteries. 3D rendering (Not supervised by radiologist): MIP and/or 3D reconstructed images were created by the technologist. Total images: 3040 Radiation optimization: All CT scans at this facility use at least one of these dose optimization techniques: automated exposure control; mA and/or kV adjustment per patient size (includes targeted exams where dose is matched to clinical indication); or iterative reconstruction. Contrast material: OMNI 350; Contrast volume: 100 ml; Contrast route: INTRAVENOUS (IV); Other technique: STROKE PROTOCOL was implemented. COMPARISON: No relevant prior studies available. FINDINGS: ANTERIOR CIRCULATION: Right internal carotid artery: Mild stenosis cavernous segment right ICA. Right middle cerebral artery: No occlusion or significant stenosis. No aneurysm. Right anterior cerebral artery: No occlusion or significant stenosis. No aneurysm. Left internal carotid artery: Intracranial segment is patent with no significant stenosis. No aneurysm. Left middle cerebral artery: No occlusion or significant stenosis. No aneurysm. Left anterior cerebral artery: No occlusion or significant stenosis. No aneurysm. POSTERIOR CIRCULATION: Right vertebral artery: No occlusion or significant stenosis. No aneurysm. Left vertebral artery: No occlusion or significant stenosis. No aneurysm. Basilar artery: No occlusion or significant stenosis. No aneurysm. Right posterior cerebral artery: No occlusion or significant stenosis. No aneurysm. Left posterior cerebral artery: No occlusion or significant stenosis. No aneurysm. Veins: No venous sinus thrombosis. HEAD: Brain: No intra or extra-axial bleed. No dense vessel. Cortical ribbon and central barrera structures are preserved. No edema. Cerebral ventricles: Normal. No ventriculomegaly. Bones/joints: Old right orbital floor fracture. Paranasal sinuses: Minimal mucosal thickening right maxillary sinus. Mastoid air cells: Visualized mastoids are normal. No mastoid effusion. Soft tissues: Unremarkable. IMPRESSION: No large vessel occlusion. Unremarkable CT head. ASSESSMENT: ASPECTS ([place] Stroke Program Early CT Score) is 10. PROCEDURE INFORMATION: Exam: CTA Neck Without And With Contrast Exam date and time: 01/09/2023 8:26 PM Age: 67 years old Clinical indication: Stroke-like symptoms; Other: AMS, confusion, resolving TECHNIQUE: Imaging protocol: Computed tomographic angiography of the neck without and with contrast. 3D rendering (Not supervised by radiologist): MIP and/or 3D reconstructed images were created by the technologist. Radiation optimization: All CT scans at this facility use at least one of these dose optimization techniques: automated exposure control; mA and/or kV adjustment per patient size (includes targeted exams where dose is matched to clinical indication); or iterative reconstruction. Contrast material: OMNI 350; Contrast volume: 100 ml; Contrast route: INTRAVENOUS (IV); COMPARISON: [facility] SCREENING 05/13/2022 7:44 AM FINDINGS: Right common carotid artery: Mild stenosis right carotid bulb. Right internal carotid artery: Mild stenosis right proximal ICA with luminal narrowing of the approximately 40%. Right external carotid artery: No occlusion or stenosis of the origin. Left common carotid artery: Mild stenosis left carotid bulb. Left internal carotid artery: Soft plaque mildly narrows the proximal left ICA. Left external carotid artery: No occlusion or stenosis of the origin. Right vertebral artery: No stenosis. No dissection or occlusion. Left vertebral artery: No stenosis. No dissection or occlusion. Soft tissues: No significant soft tissue swelling. Bones/joints: Cervical dextroscoliosis. Degenerative disc disease and spondylosis most significant at C5-C6 and C6-C7 with secondary central and foraminal stenosis. IMPRESSION: Mild bilateral carotid stenosis, right greater than left. REFERENCES: NASCET CRITERIA. The degree of stenosis in the cervical segment of the internal carotid artery is based on NASCET criteria. Normal is no stenosis. Mild is less than 50% stenosis. Moderate is 50-69% stenosis. Severe is 70% to 99% stenosis. Total occlusion is no detectable patent lumen. Dictated and Authenticated by: Meño Hui MD. Ordering:MAGALIE Abdi MD
[2023-01-09 21:20] LABS: *AMPHETAMINES SCREEN URINE Negative (Negative); *BARBITURATES SCREEN URINE Negative (Negative); *BENZODIAZEPINES SCREEN URINE Negative (Negative); Cannabinoids THC Negative (Negative); Cocaine Screen,Urine Negative (Negative); METHADONE URINE SCREEN Negative (Negative); OPIATES URINE SCREEN Negative (Negative); Tricyclic Antidepressants Negative (Negative)
--- NOTE | 2023-01-09 21:33 | DI.VRAD_ITS ---
PROCEDURE INFORMATION: Exam: XR Chest Exam date and time: 01/09/2023 8:39 PM Age: 67 years old Clinical indication: Other: AMS; Additional info: AMS, confusion, resolving TECHNIQUE: Imaging protocol: Radiologic exam of the chest. Views: 2 views. Total images: 2 COMPARISON: CT BRAIN NECK CTA 01/09/2023 8:26 PM FINDINGS: Lungs: Lungs are clear without consolidation. Pulmonary pina: Unremarkable contours. Pleural spaces: No pleural effusion. No pneumothorax. Heart/Mediastinum: Unremarkable contours. No cardiomegaly. Bones/joints: Unremarkable. Intraperitoneal space: Visualized upper abdomen is unremarkable. IMPRESSION: No acute findings. Dictated and Authenticated by: Meño Hui MD. Ordering:MAGALIE Abdi MD
--- NOTE | 2023-01-09 23:20 | NUR.NOTE ---
pt placed on referral for Neuro for Amnesia.
[2023-01-09 23:24] LABS: Troponin I 121 ng/L (<or=60)
--- NOTE | 2023-01-09 23:25 | W.EDPROG ---
Date of service: 01/09/23 Time of Service: 23:00 Medical Decision Making 2299 --please see Dr. Leatha Arguelles's note for initial presentation, exam and plan. Case endorsed to follow-up on repeat troponin and if downtrending, will plan for discharge to home. If uptrending, admit for serial troponins. 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 Patient had reportedly gone for a bike ride this afternoon that was more exertional than his usual. Patient had not remembered the bike ride initially and had issues with short-term memory after 6 PM noted by . No report of trauma. Initial troponin 99. CTA head and neck negative. Patient has denied any symptoms other than difficulty with memory of today's events which is improving and states he now remembers the bike ride but does not remember his conversation with his or initial arrival to the emergency department. He has no focal deficits on exam. states he is more than 90% back to his baseline. He denies any alcohol or drug use. He has no focal deficits on exam. 5 --troponin uptrending, now 121. Will repeat EKG. We will consult [facility] cardiology and neurology for recommendations. Will likely plan for admission for serial troponins with plan for MRI on Thursday likely as an outpatient. 0015 --discussed with [facility] neurology --agree that presentation could be consistent with transient global amnesia and agree with plan for MRI brain outpatient but no other acute recommendations. 0050 --discussed with [facility] cardiology --discussed that often abnormal troponins can be found in the setting of any acute neurologic process such as head injury or CVA. Agree with plan for trending troponins but no recommendation for treatment for ACS including heparin. 0055 --discussed with hospitalist who accepts patient for admission. Medical Records Medical records reviewed: Yes I reviewed the patient's medical records. Imaging Data Radiologic Study: Radiologist's impression: XR Chest Exam date and time: 01/09/2023 8:39 PM Age: 67 years old Clinical indication: Other: AMS; Additional info: AMS, confusion, resolving TECHNIQUE: Imaging protocol: Radiologic exam of the chest. Views: 2 views. Total images: 2 COMPARISON: CT BRAIN NECK CTA 01/09/2023 8:26 PM FINDINGS: Lungs: Lungs are clear without consolidation. Pulmonary pina: Unremarkable contours. Pleural spaces: No pleural effusion. No pneumothorax. Heart/Mediastinum: Unremarkable contours. No cardiomegaly. Bones/joints: Unremarkable. Intraperitoneal space: Visualized upper abdomen is unremarkable. IMPRESSION: No acute findings. CTA Head Without And With Contrast, Arteriography Exam date and time: 01/09/2023 8:26 PM Age: 67 years old Clinical indication: Stroke-like symptoms; Other: AMS, confusion, resolving TECHNIQUE: Imaging protocol: Computed tomographic angiography of the head without and with contrast. Exam focused on the arteries. 3D rendering (Not supervised by radiologist): MIP and/or 3D reconstructed images were created by the technologist. Total images: 3040 Radiation optimization: All CT scans at this facility use at least one of these dose optimization techniques: automated exposure control; mA and/or kV adjustment per patient size (includes targeted exams where dose is matched to clinical indication); or iterative reconstruction. Contrast material: OMNI 350; Contrast volume: 100 ml; Contrast route: INTRAVENOUS (IV);? Other technique: STROKE PROTOCOL was implemented. COMPARISON: No relevant prior studies available. FINDINGS: ANTERIOR CIRCULATION: Right internal carotid artery: Mild stenosis cavernous segment right ICA. Right middle cerebral artery: No occlusion or significant stenosis. No aneurysm.? Right anterior cerebral artery: No occlusion or significant stenosis. No aneurysm.? Left internal carotid artery: Intracranial segment is patent with no significant stenosis. No aneurysm. Left middle cerebral artery: No occlusion or significant stenosis. No aneurysm. ? Left anterior cerebral artery: No occlusion or significant stenosis. No aneurysm.? POSTERIOR CIRCULATION: Right vertebral artery: No occlusion or significant stenosis. No aneurysm.? Left vertebral artery: No occlusion or significant stenosis. No aneurysm.? Basilar artery: No occlusion or significant stenosis. No aneurysm. Right posterior cerebral artery: No occlusion or significant stenosis. No aneurysm.? Left posterior cerebral artery: No occlusion or significant stenosis. No aneurysm.? Veins: No venous sinus thrombosis. HEAD: Brain: No intra or extra-axial bleed. No dense vessel. Cortical ribbon and central barrera structures are preserved. No edema. Cerebral ventricles: Normal. No ventriculomegaly. Bones/joints: Old right orbital floor fracture. Paranasal sinuses: Minimal mucosal thickening right maxillary sinus. Mastoid air cells: Visualized mastoids are normal. No mastoid effusion. Soft tissues: Unremarkable. IMPRESSION: No large vessel occlusion. Unremarkable CT head. ASSESSMENT: ASPECTS ([place] Stroke Program Early CT Score) is 10. CTA Neck Without And With Contrast Exam date and time: 01/09/2023 8:26 PM Age: 67 years old Clinical indication: Stroke-like symptoms; Other: AMS, confusion, resolving TECHNIQUE: Imaging protocol: Computed tomographic angiography of the neck without and with contrast. 3D rendering (Not supervised by radiologist): MIP and/or 3D reconstructed images were created by the technologist. Radiation optimization: All CT scans at this facility use at least one of these dose optimization techniques: automated exposure control; mA and/or kV adjustment per patient size (includes targeted exams where dose is matched to clinical indication); or iterative reconstruction. Contrast material: OMNI 350; Contrast volume: 100 ml; Contrast route: INTRAVENOUS (IV);? COMPARISON: US AAA SCREENING 05/13/2022 7:44 AM FINDINGS: Right common carotid artery: Mild stenosis right carotid bulb. Right internal carotid artery: Mild stenosis right proximal ICA with luminal narrowing of the approximately 40%. Right external carotid artery: No occlusion or stenosis of the origin.? Left common carotid artery: Mild stenosis left carotid bulb. Left internal carotid artery: Soft plaque mildly narrows the proximal left ICA. Left external carotid artery: No occlusion or stenosis of the origin.? Right vertebral artery: No stenosis. No dissection or occlusion. Left vertebral artery: No stenosis. No dissection or occlusion. Soft tissues: No significant soft tissue swelling. Bones/joints: Cervical dextroscoliosis. Degenerative disc disease and spondylosis most significant at C5-C6 and C6-C7 with secondary central and foraminal stenosis. IMPRESSION: Mild bilateral carotid stenosis, right greater than left. Lab Data Lab results reviewed: Yes I reviewed the patient's lab results. Labs: Laboratory Tests Range/Units 01/09/23 01/09/23 01/09/23 20:10 20:10 20:50 WBC (4.4-10.8) 10^3/uL 8.52 RBC (4.36-5.78) 10^6/uL 5.02 Hgb (13.5-17.5) g/dL 15.2 Hct (40.0-50.0) % 44.6 MCV (80-95) fL 89 MCH (27.0-33.0) pg 30.3 MCHC (32.0-36.0) % 34.1 RDW (11.8-14.1) % 14.4 H Plt Count (130-400) 10^3/uL 221 MPV (8.0-11.0) fL 8.7 Immature Gran % 0.4 Neutrophils % 75.8 Lymphocytes % 17.0 Monocytes % 6.0 Eosinophils % 0.4 Basophils % 0.4 Nucleated RBC % (0.0-0.3) % 0.0 Absolute Neutrophils (1.2-6.7) 10^3/uL 6.47 Absolute Lymphocytes (1.2-3.4) 10^3/uL 1.45 Absolute Monocytes (0.1-0.8) 10^3/uL 0.51 Absolute Eosinophils (0.0-0.7) 10^3/uL 0.03 Absolute Basophils (0.0-0.2) 10^3/uL 0.03 PT (9.3-11.0) sec INR (0.9-1.1) APTT (21.5-31.9) sec Sodium (136-145) mmol/L 141 Potassium (3.5-5.1) mmol/L 4.5 Chloride (98-107) mmol/L 106 Carbon Dioxide (21.0-32.0) mmol/L 27.5 Anion Gap (3-11) mmol/L 7.5 BUN (7-18) mg/dL 19 H Creatinine (0.70-1.30) mg/dL 1.0 Est GFR (CKD-EPI 2020) (mL/min/1.73m2) 83.52 Glucose (74-106) mg/dL 105 Calcium (8.5-10.1) mg/dL 9.4 Total Bilirubin (0.2-1.0) mg/dL 0.6 AST (15-37) U/L 32 ALT (16-63) U/L 29 Alkaline Phosphatase (46-116) U/L 52 Creatine Kinase (39-308) U/L Troponin I (<or=60) ng/L 99 H* Total Protein (6.4-8.2) g/dL 7.6 Albumin (3.4-5.0) g/dL 4.3 TSH (0.36-3.74) uIU/mL 1.90 Urine Color (Yellow) Yellow Urine Clarity (Clear) Clear Urine pH (5-8) 6.0 Ur Specific [place] (1.005-1.025) 1.010 Urine Protein (Negative) mg/dL Negative Urine Ketones (Negative) mg/dL Negative Urine Blood (Negative) Trace-intact H Urine Nitrite (Negative) Negative Urine Bilirubin (Negative) Negative Urine Urobilinogen (Up to 0.2) mg/dL 0.2 Ur Leukocyte Esterase (Negative) Negative Urine RBC (0-2) HPF 0-2 Urine WBC (0-5) HPF 0-2 Ur Epithelial Cells (Negative) HPF Rare Urine Crystals (Negative) HPF Negative Urine Bacteria (Negative) HPF Negative Urine Casts (Negative) LPF Negative Urine Mucus (Negative) Negative Ur Culture Indicated? No Urine Glucose (Negative) mg/dL Negative Urine Opiates Screen (Negative) Urine Methadone Screen (Negative) Ur Barbiturates Screen (Negative) Ur Tricyclics Screen (Negative) Ur Amphetamines Screen (Negative) U Benzodiazepines Scrn (Negative) Urine Cocaine Screen (Negative) Ur THC Screen (Negative) Ethyl Alcohol (<10) mg/dL < 3.0 Range/Units 01/09/23 01/09/23 01/09/23 20:50 20:58 22:55 WBC (4.4-10.8) 10^3/uL RBC (4.36-5.78) 10^6/uL Hgb (13.5-17.5) g/dL Hct (40.0-50.0) % MCV (80-95) fL MCH (27.0-33.0) pg MCHC (32.0-36.0) % RDW (11.8-14.1) % Plt Count (130-400) 10^3/uL MPV (8.0-11.0) fL Immature Gran % Neutrophils % Lymphocytes % Monocytes % Eosinophils % Basophils % Nucleated RBC % (0.0-0.3) % Absolute Neutrophils (1.2-6.7) 10^3/uL Absolute Lymphocytes (1.2-3.4) 10^3/uL Absolute Monocytes (0.1-0.8) 10^3/uL Absolute Eosinophils (0.0-0.7) 10^3/uL Absolute Basophils (0.0-0.2) 10^3/uL PT (9.3-11.0) sec 10.4 INR (0.9-1.1) 1.0 APTT (21.5-31.9) sec 26.5 Sodium (136-145) mmol/L Potassium (3.5-5.1) mmol/L Chloride (98-107) mmol/L Carbon Dioxide (21.0-32.0) mmol/L Anion Gap (3-11) mmol/L BUN (7-18) mg/dL Creatinine (0.70-1.30) mg/dL Est GFR (CKD-EPI 2020) (mL/min/1.73m2) Glucose (74-106) mg/dL Calcium (8.5-10.1) mg/dL Total Bilirubin (0.2-1.0) mg/dL AST (15-37) U/L ALT (16-63) U/L Alkaline Phosphatase (46-116) U/L Creatine Kinase (39-308) U/L Troponin I (<or=60) ng/L 121 H* Total Protein (6.4-8.2) g/dL Albumin (3.4-5.0) g/dL TSH (0.36-3.74) uIU/mL Urine Color (Yellow) Urine Clarity (Clear) Urine pH (5-8) Ur Specific [place] (1.005-1.025) Urine Protein (Negative) mg/dL Urine Ketones (Negative) mg/dL Urine Blood (Negative) Urine Nitrite (Negative) Urine Bilirubin (Negative) Urine Urobilinogen (Up to 0.2) mg/dL Ur Leukocyte Esterase (Negative) Urine RBC (0-2) HPF Urine WBC (0-5) HPF Ur Epithelial Cells (Negative) HPF Urine Crystals (Negative) HPF Urine Bacteria (Negative) HPF Urine Casts (Negative) LPF Urine Mucus (Negative) Ur Culture Indicated? Urine Glucose (Negative) mg/dL Urine Opiates Screen (Negative) Negative Urine Methadone Screen (Negative) Negative Ur Barbiturates Screen (Negative) Negative Ur Tricyclics Screen (Negative) Negative Ur Amphetamines Screen (Negative) Negative U Benzodiazepines Scrn (Negative) Negative Urine Cocaine Screen (Negative) Negative Ur THC Screen (Negative) Negative Ethyl Alcohol (<10) mg/dL Range/Units 01/09/23 22:55 WBC (4.4-10.8) 10^3/uL RBC (4.36-5.78) 10^6/uL Hgb (13.5-17.5) g/dL Hct (40.0-50.0) % MCV (80-95) fL MCH (27.0-33.0) pg MCHC (32.0-36.0) % RDW (11.8-14.1) % Plt Count (130-400) 10^3/uL MPV (8.0-11.0) fL Immature Gran % Neutrophils % Lymphocytes % Monocytes % Eosinophils % Basophils % Nucleated RBC % (0.0-0.3) % Absolute Neutrophils (1.2-6.7) 10^3/uL Absolute Lymphocytes (1.2-3.4) 10^3/uL Absolute Monocytes (0.1-0.8) 10^3/uL Absolute Eosinophils (0.0-0.7) 10^3/uL Absolute Basophils (0.0-0.2) 10^3/uL PT (9.3-11.0) sec INR (0.9-1.1) APTT (21.5-31.9) sec Sodium (136-145) mmol/L Potassium (3.5-5.1) mmol/L Chloride (98-107) mmol/L Carbon Dioxide (21.0-32.0) mmol/L Anion Gap (3-11) mmol/L BUN (7-18) mg/dL Creatinine (0.70-1.30) mg/dL Est GFR (CKD-EPI 2020) (mL/min/1.73m2) Glucose (74-106) mg/dL Calcium (8.5-10.1) mg/dL Total Bilirubin (0.2-1.0) mg/dL AST (15-37) U/L ALT (16-63) U/L Alkaline Phosphatase (46-116) U/L Creatine Kinase (39-308) U/L 1632 H Troponin I (<or=60) ng/L Total Protein (6.4-8.2) g/dL Albumin (3.4-5.0) g/dL TSH (0.36-3.74) uIU/mL Urine Color (Yellow) Urine Clarity (Clear) Urine pH (5-8) Ur Specific [place] (1.005-1.025) Urine Protein (Negative) mg/dL Urine Ketones (Negative) mg/dL Urine Blood (Negative) Urine Nitrite (Negative) Urine Bilirubin (Negative) Urine Urobilinogen (Up to 0.2) mg/dL Ur Leukocyte Esterase (Negative) Urine RBC (0-2) HPF Urine WBC (0-5) HPF Ur Epithelial Cells (Negative) HPF Urine Crystals (Negative) HPF Urine Bacteria (Negative) HPF Urine Casts (Negative) LPF Urine Mucus (Negative) Ur Culture Indicated? Urine Glucose (Negative) mg/dL Urine Opiates Screen (Negative) Urine Methadone Screen (Negative) Ur Barbiturates Screen (Negative) Ur Tricyclics Screen (Negative) Ur Amphetamines Screen (Negative) U Benzodiazepines Scrn (Negative) Urine Cocaine Screen (Negative) Ur THC Screen (Negative) Ethyl Alcohol (<10) mg/dL ECG Data Attestation: I personally reviewed and interpreted this ECG (s) as follows: Interpretation: #1 -- rate of 80, sinus, normal axis, no stemi. #2 -- rate of 69, sinus, normal axis, no stemi. Sign Out Sign Out Data: Sign Out Comment: concern for transient global amnesia, elevated trop, pending repeat trop for dispo Last updated by Jin Arguelles MD at 01/09/23 23:27 Discharge Plan Disposition Patient Disposition: Admit to [facility] Discharge Details Chief Complaint: AMS/LOC Clinical Impression: Transient global amnesia, Elevated troponin Primary Care Provider: Bee Velazquez ED Provider: Cindy Del Rio Home Meds and New Rx's Prescriptions: No Action latanoprost 0.005 % drops 1 drp ophthalmic (eye) DAILY Rx Instructions: both eyes for glucoma bisacodyl [Dulcolax (bisacodyl)] 5 mg tablet,delayed release (DR/EC) 5 mg PO ONCE Qty: 4 0RF Rx Instructions: take per colonoscopy instructions Discharge Instructions Instructions: Transient Global Amnesia (ED) Additional Instructions: Please follow-up with neurology early next week. Please return to the emergency department for any worsening symptoms
--- NOTE | 2023-01-09 23:30 | RT.EKG_ITS ---
APPROVED REPORT Exam: Resting ECG Reason for Exam: elevated troponin Patient Location: E HR:69 bpm ECG Measurements Heart Rate [address] 197 P 92 QRSd 91 QRS 66 QT 405 T 7 QTc 433 Conclusion Sinus rhythm...normal P axis, V-rate 60- 99. Sinus. Normal axis. No STEMI. I have reviewed and interpreted ECG and agree with software generated interpretation.
[2023-01-10] VITALS (19 sets, daily range): BP systolic 119–146; BP diastolic 70–89; PULSE 59–82; RESP 15–27; TEMP 36.3–36.4; O2SAT 95–98
[2023-01-10] MEDS: Aspirin 325 MG TAB PO (00:23)
[2023-01-10] MEDS: Normal Saline 1,000 ML 1000 ML IV (00:24)
--- NOTE | 2023-01-10 01:05 | HPE_ITS ---
Date of service: 01/10/23 Time of Service: 01:06 Assessment and Plan Assessment and plan (1) Transient global amnesia: Status: Acute Assessment and plan: The patient is back to baseline. Will do serial neuro checks. Anticipate that the patient will be discharged with outpatient MRI and neurology follow up. (2) Elevated troponin: Status: Acute Assessment and plan: In setting of an acute event and after strenuous activity; however, asymptomatic and without signs of ischemia on EKG, per ER provider (since PACS is not opening up for me). The patient does have rhabdomyolysis by CPK, which is the likely explanation for the elevated troponin. The patient will be monitored on tele, but I do not think that further cardiac workup is indicated. (3) Hyperlipidemia: Status: Chronic Assessment and plan: Check a fasting lipid panel (4) Asymptomatic microscopic hematuria: Status: Acute Assessment and plan: Suspect that this is due to myoglobinuria. UA should be rechecked as outpatient after resolution of rhabdomyolysis. (5) Bilateral carotid artery stenosis: Status: Acute Assessment and plan: Mild. Found on CTA of the neck. Obtain fasting lipid panel. Suspect the patient may need to be on a statin on discharge. (6) DVT prophylaxis: Status: Acute Assessment and plan: SC enoxaparin (7) Discharge planning issues: Status: Acute Assessment and plan: DNI as per my conversation with the patient with his as a witness. This contradicts his advanced directive. History of Present Illness History of Present Illness Chief Complaint: Altered mental status Narrative: Mr Fernandes is a 67 eyear old male with PMHx of hyperlipidemia, glaucoma, distant history of alcohol abuse in remission x 30 years, who presented to [facility] ED on 01/09/23 after being found to be confused after a long/strenuous bike ride. This was this patient's 2nd bike ride this season. He went for the bike ride by himself. After the bike ride, the patient's found him asking the same question over and over again, and after 45 minutes decided to go to the ER. Here, the patient had a nonfocal neurological exam. He had a negative CT/CTA he ad/neck. He did have a very mildly elevated troponin I of 99 which went up to 121 ng/L on recheck without any reports of chest pain or palpitations and no evidence of ischemia on the EKG. The case was reviewed with [facility] neurology and cardiology. While [facility] neurology suspects that the MRI will be negative as this is likely Transient Global Amnesia, an MRI could be obtained as an outpatient. Cardiology did not feel that this level of elevated troponin represented an ACS. Neither neurology nor cardiology recommended antiplatelet therapy. Observation on the hospitalist service was requested. By the time of this evaluation, the patient is back to baseline, per his . The states she had not done a tick check on him today. Review of Systems All systems reviewed & are unremarkable except as noted in HPI and below PFSH All Active Problems (Updated 01/10/23 @ 02:03 by Joi Nieves MD) Transient global amnesia (Acute) Elevated troponin (Acute) Discharge planning issues (Acute) DVT prophylaxis (Acute) Bilateral carotid artery stenosis (Acute) Asymptomatic microscopic hematuria (Acute) Elevated troponin (Acute) Transient global amnesia (Acute) Araceli-rectal abscess (Acute) Encounter for routine history and physical examination (Acute) Tubular adenoma (Acute 02/2019) fragments of tubular adenoma-transverse colon fragments of inflamed tubular adenoma-rectum superficial fragments of inflamed tubulovillous adenoma Internal hemorrhoids without complication (Acute) Colorectal polyps (Acute) S/P colonoscopy (Acute ~02/21/19) Positive colorectal cancer screening using Cologuard test (Acute) Glaucoma (Chronic) diagnosed in [facility] manages now Disequilibrium (Acute 09/03/15) Pt states that was 2 years ago, and currently does not have. Hyperlipidemia (Chronic 02/15/13) Sensorineural hearing loss, bilateral (Acute 09/03/15) Medical History (Updated 01/10/23 @ 02:03 by Joi Nieves MD) 4-quinolones overdose (02/15/13) Recovering alcoholic in remission Surgical History (Updated 09/29/22 @ 13:30 by Radha Panda RN) History of colonoscopy (~09/2022) Hx of hernia repair Family History (Updated 01/10/23 @ 01:49 by Joi Nieves MD) Mother Heart disease Father Stroke had an arrhythmia Social History Smoking/Tobacco Use Status: Never Smoking risk assessment performed?: Yes Alcohol Intake: former Year quit: Drug use: Never Substance use type: does not use Adopted: No Caregiver/Support person: No Foster care: No Household members: spouse Number of Children: 0 Education Level: high school Do you need help understanding health information?: Rarely 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 Pets and animals: Yes Pets and animals: dog(s) Sexually active: Yes Do you think of yourself as: straight/heterosexual Current gender identity: male What is your relationship status?: How often do you talk on the phone with friends or family?: once per week Do you belong to any clubs or organized social groups?: yes Panel score (0-1 are the most socially isolated patients): 2 What type of physical activity do you participate in: walking, bicycling and other Details: snowshoes in winter Duration: 30-45 minutes/day Frequency: daily Peggy/Baptism: Faith Special peggy needs: No Seatbelt use: always Helmet use: Yes Drive intox or ride w/intox newspaper 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 driver: No Working smoke detector in home: Yes Fire extinguisher in home: Yes Carbon monox detector in home: Yes Do you feel safe at home: Yes Do you feel safe in your relationship?: Yes Meds Allergies and Home Medications Allergies Allergy/AdvReac Type Severity Reaction Status Date / Time No Known Drug Allergies Allergy Verified 09/04/22 11:02 Home Medications Medication Instructions Recorded Confirmed Type latanoprost 0.005 % eye drops 1 drp ophthalmic (eye) DAILY 04/16/22 01/10/23 History bisacodyl 5 mg tablet,delayed 5 mg PO ONCE colonscopy bowel prep 08/25/22 01/10/23 Rx release (Dulcolax (bisacodyl)) #4 tabs Exam Narrative Exam Narrative: General: Pleasant middle-aged male who is A&Ox3, laying comfortably in bed, appropriately conversant Neurological: A&Ox3, good recall (no repeated questions), 5/5 strenght throughout, CN II-XII intact Psychiatric: Appropriate speech pattern/content Skin: Visible skin intact HEENT: Atraumatic, normocephalic, EOMI, MMM, clear oropharynx, no submandibular or cervical lymphadenopathy, no goiter or JVD Cardiovascular: RRR, no m/r/g Lungs: CTAB Gastrointestinal: soft, nontender, nondistended Genitourinary: deferred Extremities: no edema BLEs, 5/5 strength Results Imaging Additional studies: CT/CTA head: No large vessel occlusion. Unremarkable CT head. CTA neck: Mild bilateral carotid stenosis, right greater than left. I am attempting to review the EKGs, but the PACS system does not seem to be working. Labs 01/09/23 20:10 01/09/23 20:10 Labs: Laboratory Results - last 24 hr 01/09/23 01/09/23 01/09/23 20:10 20:10 20:50 WBC 8.52 RBC 5.02 Hgb 15.2 Hct 44.6 MCV 89 MCH 30.3 MCHC 34.1 RDW 14.4 H Plt Count 221 MPV 8.7 Immature Gran % 0.4 Neutrophils % 75.8 Lymphocytes % 17.0 Monocytes % 6.0 Eosinophils % 0.4 Basophils % 0.4 Nucleated RBC % 0.0 Absolute Neutrophils 6.47 Absolute Lymphocytes 1.45 Absolute Monocytes 0.51 Absolute Eosinophils 0.03 Absolute Basophils 0.03 PT INR APTT Sodium 141 Potassium 4.5 Chloride 106 Carbon Dioxide 27.5 Anion Gap 7.5 BUN 19 H Creatinine 1.0 Est GFR (CKD-EPI 2020) 83.52 Glucose 105 Calcium 9.4 Total Bilirubin 0.6 AST 32 ALT 29 Alkaline Phosphatase 52 Troponin I 99 H* Total Protein 7.6 Albumin 4.3 TSH 1.90 Urine Color Yellow Urine Clarity Clear Urine pH 6.0 Ur Specific [place] 1.010 Urine Protein Negative Urine Ketones Negative Urine Blood Trace-intact H Urine Nitrite Negative Urine Bilirubin Negative Urine Urobilinogen 0.2 Ur Leukocyte Esterase Negative Urine RBC 0-2 Urine WBC 0-2 Ur Epithelial Cells Rare Urine Crystals Negative Urine Bacteria Negative Urine Casts Negative Urine Mucus Negative Ur Culture Indicated? No Urine Glucose Negative Urine Opiates Screen Urine Methadone Screen Ur Barbiturates Screen Ur Tricyclics Screen Ur Amphetamines Screen U Benzodiazepines Scrn Urine Cocaine Screen Ur THC Screen Ethyl Alcohol < 3.0 01/09/23 01/09/23 01/09/23 20:50 20:58 22:55 WBC RBC Hgb Hct MCV MCH MCHC RDW Plt Count MPV Immature Gran % Neutrophils % Lymphocytes % Monocytes % Eosinophils % Basophils % Nucleated RBC % Absolute Neutrophils Absolute Lymphocytes Absolute Monocytes Absolute Eosinophils Absolute Basophils PT 10.4 INR 1.0 APTT 26.5 Sodium Potassium Chloride Carbon Dioxide Anion Gap BUN Creatinine Est GFR (CKD-EPI 2020) Glucose Calcium Total Bilirubin AST ALT Alkaline Phosphatase Troponin I 121 H* Total Protein Albumin TSH Urine Color Urine Clarity Urine pH Ur Specific [place] Urine Protein Urine Ketones Urine Blood Urine Nitrite Urine Bilirubin Urine Urobilinogen Ur Leukocyte Esterase Urine RBC Urine WBC Ur Epithelial Cells Urine Crystals Urine Bacteria Urine Casts Urine Mucus Ur Culture Indicated? Urine Glucose Urine Opiates Screen Negative Urine Methadone Screen Negative Ur Barbiturates Screen Negative Ur Tricyclics Screen Negative Ur Amphetamines Screen Negative U Benzodiazepines Scrn Negative Urine Cocaine Screen Negative Ur THC Screen Negative Ethyl Alcohol Last Vital Signs Temp 36.3 C L 01/09/23 20:07 Pulse 66 01/09/23 23:00 Resp 13 01/09/23 23:10 BP 141/82 H 01/09/23 23:00 Pulse Ox 99 01/09/23 23:10 Time Spent Time spent with Patient: 55-74 minutes Time was spent: preparing to see the patient(eg.review tests), obtaining and/or reviewing separately otained hiistory, ordering medications,tests, procedures, referring, communicating with other health home health care physician, indepentently interpreting results, counseling the patient and care coordination
[2023-01-10 01:25] LABS: Creatine Kinase 1632 U/L (39-308)
[2023-01-10] MEDS: Lactated Ringers 1,000 ML 125 ML IV (02:11)
[2023-01-10 03:22] LABS: Magnesium 2.2 mg/dL (1.8-2.4); NT-proBNP 109 pg/mL (<300)
[2023-01-10 03:31] LABS: Lab Add On Test DONE
[2023-01-10 06:28] LABS: Abs Immature Grans 0.02 10^3/uL (0.0-0.06); Absolute Basophil Count 0.05 10^3/uL (0.0-0.2); Absolute Eosinophil Count 0.11 10^3/uL (0.0-0.7); Absolute Monocyte Count 0.65 10^3/uL (0.1-0.8); Absolute Neutrophil Count 3.75 10^3/uL (1.2-6.7); Basophils % 0.7; Eosinophils % 1.6; HCT 39.2 % (40.0-50.0); HGB 13.3 g/dL (13.5-17.5); Immature Grans % 0.3; Lymphocytes % 32.4; MCH 29.9 pg (27.0-33.0); MCHC 33.9 % (32.0-36.0); MCV 88 fL (80-95); Monocytes % 9.6; Neutrophils % 55.4; Platelet Count 198 10^3/uL (130-400); RBC 4.45 10^6/uL (4.36-5.78); RDW 14.2 % (11.8-14.1); RDW-SD 45.4 fL; WBC 6.78 10^3/uL (4.4-10.8)
[2023-01-10 06:59] LABS: Anion Gap 8.1 mmol/L (3-11); BUN 18 mg/dL (7-18); CO2 24.9 mmol/L (21.0-32.0); Calcium 8.6 mg/dL (8.5-10.1); Chloride 112 mmol/L (98-107); Estimated GFR 83.52 (mL/min/1.73m2); Glucose 93 mg/dL (74-106); Magnesium 2.1 mg/dL (1.8-2.4); Potassium 3.8 mmol/L (3.5-5.1); Sodium 145 mmol/L (136-145)
[2023-01-10 07:12] LABS: Creatine Kinase 1196 U/L (39-308)
[2023-01-10 07:13] LABS: Troponin I 122 ng/L (<or=60)
[2023-01-10 07:25] LABS: Calculated LDL 110 mg/dL (<100); Cholesterol 170 mg/dL (<200); HDL Cholesterol 51 mg/dL (40-60); Triglyceride 49 mg/dL (<150)
[2023-01-10 07:44] LABS: Lab Add On Test DONE
[2023-01-10 07:54] LABS: ESR < 1 mm/hr (0-20)
[2023-01-10 08:14] LABS: C-Reactive Protein < 0.05 mg/dL (0.0-0.3)
--- NOTE | 2023-01-10 10:01 | W.PM.DS.N ---
Date of service: 01/10/23 Time of Service: 10:01 DS: Diagnosis Discharge Diagnosis (1) Transient global amnesia: Status: Acute (2) Elevated troponin: Status: Acute (3) Hyperlipidemia: Status: Chronic (4) Asymptomatic microscopic hematuria: Status: Acute (5) Bilateral carotid artery stenosis: Status: Acute Discharge Plan Disposition Patient Disposition: Home Condition: Stable Discharge Details Reason For Visit: Transient Global Amnesia,Elevated Troponin Admit Date/Time: 01/10/23 01:01 Admit Provider: Joi Nieves Attending Provider: Joi Nieves Primary Care Provider: Marcus,Bee [facility] Hospital Course Hospital Course: Mr Fernandes is a 67 eyear old male with PMHx of hyperlipidemia, glaucoma, distant history of alcohol abuse in remission x 30 years, who presented to [facility] ED on 01/09/23 after being found to be confused after a long/strenuous bike ride. This was this patient's 2nd bike ride this season. He went for the bike ride by himself. After the bike ride, the patient's found him asking the same question over and over again, and after 45 minutes decided to go to the ER. Here, the patient had a nonfocal neurological exam. He had a negative CT/CTA head/neck. He did have a very mildly elevated troponin I of 99 which went up to 121 ng/L on recheck without any reports of chest pain or palpitations and no evidence of ischemia on the EKG. The case was reviewed with [facility] neurology and cardiology. While [facility] neurology suspects that the MRI will be negative as this is likely Transient Global Amnesia, an MRI could be obtained as an outpatient. Cardiology did not feel that this level of elevated troponin represented an ACS. Neither neurology nor cardiology recommended antiplatelet therapy. Observation on the hospitalist service was requested. By the time of his admission the patient was back to baseline. Overnight he remained medically stable, no further confusion noted. He remained in NSR on telemetry, CPK trending downward. He was eating and drinking well, voiding without difficulty. His troponin remained flat and he experienced no chest pain. he is stable and ready for discharge to home. no services. discussed with DR Ledezma. Home Meds and New Rx's Prescriptions: Continued latanoprost 0.005 % drops 1 drp ophthalmic (eye) DAILY Rx Instructions: both eyes for glucoma bisacodyl [Dulcolax (bisacodyl)] 5 mg tablet,delayed release (DR/EC) 5 mg PO ONCE Qty: 4 0RF Rx Instructions: take per colonoscopy instructions Discharge Instructions Instructions: Transient Global Amnesia (ED) Additional Instructions: Please follow-up with neurology early next week. Please return to the emergency department for any worsening symptoms drink 6-8 glasses of water daily adding fluids with electrolytes to stay well hydrated Stand Alone Forms: Nursing Discharge Form Referrals: Nina Lo MD [ [facility] STAFF PHYSICIAN] - (Office will call you for appointment. ) Bee Velazquez NP [Primary Care Provider] - (Please call Thursday to make a follow up appointment for 1-2 weeks.) Activity:: Activity as Tolerated Equipment/Supplies:: No Equipment Needed Diet:: As Tolerated Discharge Orders Discharge Orders: Discharge Order (Routine); Ordered 01/10/23 Ordered By: Marilee Mccarthy Discharge Data Discharge Date/Time-TO BE ENTERED AT DEPARTURE: 01/10/23 11:39 DS: Summary Time Spent with Patient providing and/or coordinating discharge services: Less than 30 minutes Status at Discharge Functional status at discharge: independent ambulation Overall status at discharge: patient is back to baseline Mental Status: mental status grossly normal Speech and Movement: speech and movement normal Mood: congruent mood Affect: normal affect Exam Const General: cooperative, healthy appearing, comfortable and no acute distress Nutritional Appearance: average body habitus Orientation: alert, awake and oriented x3 HENMT Head: normal to inspection, normocephalic and atraumatic Mouth: oral mucosae normal Chest Chest: normal inspection of the chest Resp Effort & Inspection: normal respiratory effort Auscultation: clear to auscultation bilaterally Cardio Rate: regular rate Rhythm: regular rhythm GI Inspection: normal to inspection Palpation: soft Neuro General: patient alert, patient awake, patient oriented x3 and tone normal Cognition: normal cognition Speech: speech normal Gait: normal gait Motor: muscle tone normal throughout Sensory Exam: no sensory deficits noted Extrem General: normal to inspection, full ROM and no pedal edema Psych Mental Status: mental status grossly normal Speech and Movement: speech and movement normal Mood: congruent mood Affect: normal affect DS: Data Vitals/I&O Vitals and I&O: Vital Signs Temperature 36.4 C L 01/10/23 07:34 Temperature Source Tympanic 01/10/23 07:34 Pulse 82 01/10/23 07:34 Pulse Rhythm Regular 01/10/23 08:18 Pulse 66 01/10/23 01:20 Respiratory Rate 15 01/10/23 07:34 Respiratory Effort Normal, Non-Labored 01/10/23 08:18 Respiratory Depth Normal 01/10/23 08:18 Respiratory Pattern Normal 01/10/23 08:18 Blood Pressure 119/70 01/10/23 07:34 Blood Pressure Mean 94 01/10/23 01:15 Blood Pressure Position Supine 01/09/23 20:07 Pulse Oximetry 95 01/10/23 07:34 Oxygen Delivery Method Room Air 01/10/23 07:34 Oxygen Flow Rate 0 01/10/23 07:34 Pain Level 0 01/10/23 08:18 Comment Pt. denies pain at this time. 01/10/23 08:18 Intake & Output 01/09/23 01/09/23 01/10/23 11:59 23:59 11:59 Intake Total 1910 / 1910 Output Total 600 / 600 Balance 1310 / 1310 Weight 79.379 kg 76.6 kg Intake: IV 1000 / 1000 Oral 910 / 910 Output: Urine 600 / 600 Other: Urine Color Yellow Urine Appearance Clear Urine Odor Normal Comment Void x1 in the toilet. Voiding Methods Toilet Data Completed and Pending Labs on day of discharge: Labs from last 24 hours 01/10/23 01/10/23 01/10/23 22:55 07:37 07:37 WBC RBC Hgb Hct MCV MCH MCHC RDW Plt Count MPV Immature Gran % Neutrophils % Lymphocytes % Monocytes % Eosinophils % Basophils % Nucleated RBC % Absolute Neutrophils Absolute Lymphocytes Absolute Monocytes Absolute Eosinophils Absolute Basophils ESR < 1 PT INR APTT Sodium Potassium Chloride Carbon Dioxide Anion Gap BUN Creatinine Est GFR (CKD-EPI 2020) Glucose Hemoglobin A1c Calcium Magnesium Total Bilirubin AST ALT Alkaline Phosphatase Creatine Kinase Troponin I C-Reactive Protein < 0.05 NT-Pro-B Natriuret Pep Total Protein Albumin Triglycerides Total Cholesterol LDL Cholesterol, Calc HDL Cholesterol TSH Urine Color Urine Clarity Urine pH Ur Specific [place] Urine Protein Urine Ketones Urine Blood Urine Nitrite Urine Bilirubin Urine Urobilinogen Ur Leukocyte Esterase Urine RBC Urine WBC Ur Epithelial Cells Urine Crystals Urine Bacteria Urine Casts Urine Mucus Ur Culture Indicated? Urine Myoglobin Urine Glucose Urine Opiates Screen Urine Methadone Screen Ur Barbiturates Screen Ur Tricyclics Screen Ur Amphetamines Screen U Benzodiazepines Scrn Urine Cocaine Screen Ur THC Screen Ethyl Alcohol B. divergens/MO-1 PCR Babesia duncani (PCR) Babesia microti DNA PCR Lyme Disease Antibody E.chaffeensis DNA (PCR) E.ewingii/canis DNA PCR E.muris eauclairensis (PCR) A. phagocytophilum (PCR) Blood B. miyamotoi (PCR) Add-On Test Request DONE 01/10/23 01/10/23 01/10/23 07:37 05:50 05:50 WBC RBC Hgb Hct MCV MCH MCHC RDW Plt Count MPV Immature Gran % Neutrophils % Lymphocytes % Monocytes % Eosinophils % Basophils % Nucleated RBC % Absolute Neutrophils Absolute Lymphocytes Absolute Monocytes Absolute Eosinophils Absolute Basophils ESR PT INR APTT Sodium Potassium Chloride Carbon Dioxide Anion Gap BUN Creatinine Est GFR (CKD-EPI 2020) Glucose Hemoglobin A1c Calcium Magnesium Total Bilirubin AST ALT Alkaline Phosphatase Creatine Kinase 1196 H Troponin I C-Reactive Protein NT-Pro-B Natriuret Pep Total Protein Albumin Triglycerides Total Cholesterol LDL Cholesterol, Calc HDL Cholesterol TSH Urine Color Urine Clarity Urine pH Ur Specific [place] Urine Protein Urine Ketones Urine Blood Urine Nitrite Urine Bilirubin Urine Urobilinogen Ur Leukocyte Esterase Urine RBC Urine WBC Ur Epithelial Cells Urine Crystals Urine Bacteria Urine Casts Urine Mucus Ur Culture Indicated? Urine Myoglobin Urine Glucose Urine Opiates Screen Urine Methadone Screen Ur Barbiturates Screen Ur Tricyclics Screen Ur Amphetamines Screen U Benzodiazepines Scrn Urine Cocaine Screen Ur THC Screen Ethyl Alcohol B. divergens/MO-1 PCR Pending Babesia duncani (PCR) Pending Babesia microti DNA PCR Pending Lyme Disease Antibody Pending E.chaffeensis DNA (PCR) Pending E.ewingii/canis DNA PCR Pending E.muris eauclairensis (PCR) Pending A. phagocytophilum (PCR) Pending Blood B. miyamotoi (PCR) Pending Add-On Test Request DONE 01/10/23 01/10/23 01/10/23 05:50 05:50 05:50 WBC 6.78 RBC 4.45 Hgb 13.3 L Hct 39.2 L MCV 88 MCH 29.9 MCHC 33.9 RDW 14.2 H Plt Count 198 MPV 9.0 Immature Gran % 0.3 Neutrophils % 55.4 Lymphocytes % 32.4 Monocytes % 9.6 Eosinophils % 1.6 Basophils % 0.7 Nucleated RBC % 0.0 Absolute Neutrophils 3.75 Absolute Lymphocytes 2.20 Absolute Monocytes 0.65 Absolute Eosinophils 0.11 Absolute Basophils 0.05 ESR PT INR APTT Sodium 145 Potassium 3.8 Chloride 112 H Carbon Dioxide 24.9 Anion Gap 8.1 BUN 18 Creatinine 1.0 Est GFR (CKD-EPI 2020) 83.52 Glucose 93 Hemoglobin A1c 5.0 Calcium 8.6 Magnesium 2.1 Total Bilirubin AST ALT Alkaline Phosphatase Creatine Kinase Troponin I 122 H* C-Reactive Protein NT-Pro-B Natriuret Pep Total Protein Albumin Triglycerides 49 Total Cholesterol 170 LDL Cholesterol, Calc 110 H HDL Cholesterol 51 TSH Urine Color Urine Clarity Urine pH Ur Specific [place] Urine Protein Urine Ketones Urine Blood Urine Nitrite Urine Bilirubin Urine Urobilinogen Ur Leukocyte Esterase Urine RBC Urine WBC Ur Epithelial Cells Urine Crystals Urine Bacteria Urine Casts Urine Mucus Ur Culture Indicated? Urine Myoglobin Urine Glucose Urine Opiates Screen Urine Methadone Screen Ur Barbiturates Screen Ur Tricyclics Screen Ur Amphetamines Screen U Benzodiazepines Scrn Urine Cocaine Screen Ur THC Screen Ethyl Alcohol B. divergens/MO-1 PCR Babesia duncani (PCR) Babesia microti DNA PCR Lyme Disease Antibody E.chaffeensis DNA (PCR) E.ewingii/canis DNA PCR E.muris eauclairensis (PCR) A. phagocytophilum (PCR) Blood B. miyamotoi (PCR) Add-On Test Request 01/10/23 01/09/23 01/09/23 01:19 22:55 22:55 WBC RBC Hgb Hct MCV MCH MCHC RDW Plt Count MPV Immature Gran % Neutrophils % Lymphocytes % Monocytes % Eosinophils % Basophils % Nucleated RBC % Absolute Neutrophils Absolute Lymphocytes Absolute Monocytes Absolute Eosinophils Absolute Basophils ESR PT INR APTT Sodium Potassium Chloride Carbon Dioxide Anion Gap BUN Creatinine Est GFR (CKD-EPI 2020) Glucose Hemoglobin A1c Calcium Magnesium 2.2 Total Bilirubin AST ALT Alkaline Phosphatase Creatine Kinase 1632 H Troponin I 121 H* C-Reactive Protein NT-Pro-B Natriuret Pep 109 Total Protein Albumin Triglycerides Total Cholesterol LDL Cholesterol, Calc HDL Cholesterol TSH Urine Color Urine Clarity Urine pH Ur Specific [place] Urine Protein Urine Ketones Urine Blood Urine Nitrite Urine Bilirubin Urine Urobilinogen Ur Leukocyte Esterase Urine RBC Urine WBC Ur Epithelial Cells Urine Crystals Urine Bacteria Urine Casts Urine Mucus Ur Culture Indicated? Urine Myoglobin Pending Urine Glucose Urine Opiates Screen Urine Methadone Screen Ur Barbiturates Screen Ur Tricyclics Screen Ur Amphetamines Screen U Benzodiazepines Scrn Urine Cocaine Screen Ur THC Screen Ethyl Alcohol B. divergens/MO-1 PCR Babesia duncani (PCR) Babesia microti DNA PCR Lyme Disease Antibody E.chaffeensis DNA (PCR) E.ewingii/canis DNA PCR E.muris eauclairensis (PCR) A. phagocytophilum (PCR) Blood B. miyamotoi (PCR) Add-On Test Request 01/09/23 01/09/23 01/09/23 20:58 20:50 20:50 WBC RBC Hgb Hct MCV MCH MCHC RDW Plt Count MPV Immature Gran % Neutrophils % Lymphocytes % Monocytes % Eosinophils % Basophils % Nucleated RBC % Absolute Neutrophils Absolute Lymphocytes Absolute Monocytes Absolute Eosinophils Absolute Basophils ESR PT 10.4 INR 1.0 APTT 26.5 Sodium Potassium Chloride Carbon Dioxide Anion Gap BUN Creatinine Est GFR (CKD-EPI 2020) Glucose Hemoglobin A1c Calcium Magnesium Total Bilirubin AST ALT Alkaline Phosphatase Creatine Kinase Troponin I C-Reactive Protein NT-Pro-B Natriuret Pep Total Protein Albumin Triglycerides Total Cholesterol LDL Cholesterol, Calc HDL Cholesterol TSH Urine Color Yellow Urine Clarity Clear Urine pH 6.0 Ur Specific [place] 1.010 Urine Protein Negative Urine Ketones Negative Urine Blood Trace-intact H Urine Nitrite Negative Urine Bilirubin Negative Urine Urobilinogen 0.2 Ur Leukocyte Esterase Negative Urine RBC 0-2 Urine WBC 0-2 Ur Epithelial Cells Rare Urine Crystals Negative Urine Bacteria Negative Urine Casts Negative Urine Mucus Negative Ur Culture Indicated? No Urine Myoglobin Urine Glucose Negative Urine Opiates Screen Negative Urine Methadone Screen Negative Ur Barbiturates Screen Negative Ur Tricyclics Screen Negative Ur Amphetamines Screen Negative U Benzodiazepines Scrn Negative Urine Cocaine Screen Negative Ur THC Screen Negative Ethyl Alcohol B. divergens/MO-1 PCR Babesia duncani (PCR) Babesia microti DNA PCR Lyme Disease Antibody E.chaffeensis DNA (PCR) E.ewingii/canis DNA PCR E.muris eauclairensis (PCR) A. phagocytophilum (PCR) Blood B. miyamotoi (PCR) Add-On Test Request 01/09/23 01/09/23 20:10 20:10 WBC 8.52 RBC 5.02 Hgb 15.2 Hct 44.6 MCV 89 MCH 30.3 MCHC 34.1 RDW 14.4 H Plt Count 221 MPV 8.7 Immature Gran % 0.4 Neutrophils % 75.8 Lymphocytes % 17.0 Monocytes % 6.0 Eosinophils % 0.4 Basophils % 0.4 Nucleated RBC % 0.0 Absolute Neutrophils 6.47 Absolute Lymphocytes 1.45 Absolute Monocytes 0.51 Absolute Eosinophils 0.03 Absolute Basophils 0.03 ESR PT INR APTT Sodium 141 Potassium 4.5 Chloride 106 Carbon Dioxide 27.5 Anion Gap 7.5 BUN 19 H Creatinine 1.0 Est GFR (CKD-EPI 2020) 83.52 Glucose 105 Hemoglobin A1c Calcium 9.4 Magnesium Total Bilirubin 0.6 AST 32 ALT 29 Alkaline Phosphatase 52 Creatine Kinase Troponin I 99 H* C-Reactive Protein NT-Pro-B Natriuret Pep Total Protein 7.6 Albumin 4.3 Triglycerides Total Cholesterol LDL Cholesterol, Calc HDL Cholesterol TSH 1.90 Urine Color Urine Clarity Urine pH Ur Specific [place] Urine Protein Urine Ketones Urine Blood Urine Nitrite Urine Bilirubin Urine Urobilinogen Ur Leukocyte Esterase Urine RBC Urine WBC Ur Epithelial Cells Urine Crystals Urine Bacteria Urine Casts Urine Mucus Ur Culture Indicated? Urine Myoglobin Urine Glucose Urine Opiates Screen Urine Methadone Screen Ur Barbiturates Screen Ur Tricyclics Screen Ur Amphetamines Screen U Benzodiazepines Scrn Urine Cocaine Screen Ur THC Screen Ethyl Alcohol < 3.0 B. divergens/MO-1 PCR Babesia duncani (PCR) Babesia microti DNA PCR Lyme Disease Antibody E.chaffeensis DNA (PCR) E.ewingii/canis DNA PCR E.muris eauclairensis (PCR) A. phagocytophilum (PCR) Blood B. miyamotoi (PCR) Add-On Test Request [facility] All Active Problems (Updated 01/11/23 @ 00:01 by TOBY VYAS) Transient global amnesia (Acute) Elevated troponin (Acute) Bilateral carotid artery stenosis (Acute) Asymptomatic microscopic hematuria (Acute) Elevated troponin (Acute) Transient global amnesia (Acute) Araceli-rectal abscess (Acute) Encounter for routine history and physical examination (Acute) Tubular adenoma (Acute 02/2019) fragments of tubular adenoma-transverse colon fragments of inflamed tubular adenoma-rectum superficial fragments of inflamed tubulovillous adenoma Internal hemorrhoids without complication (Acute) Colorectal polyps (Acute) S/P colonoscopy (Acute ~02/21/19) Positive colorectal cancer screening using Cologuard test (Acute) Glaucoma (Chronic) diagnosed in [facility] now Disequilibrium (Acute 09/03/15) Pt states that was 2 years ago, and currently does not have. Hyperlipidemia (Chronic 02/15/13) Sensorineural hearing loss, bilateral (Acute 09/03/15) Medical History (Updated 01/11/23 @ 00:01 by TOBY VYAS) 4-quinolones overdose (02/15/13) Recovering alcoholic in remission Surgical History (Updated 09/29/22 @ 13:30 by Radha Panda RN) History of colonoscopy (~09/2022) Hx of hernia repair Family History (Updated 01/10/23 @ 01:49 by Joi Nieves MD) Mother Heart disease Father Stroke had an arrhythmia Social History Smoking/Tobacco Use Status: Never Smoking risk assessment performed?: Yes Alcohol Intake: former Year quit: Drug use: Never Substance use type: does not use Adopted: No Caregiver/Support person: No Foster care: No Household members: spouse Number of Children: 0 Education Level: high school Do you need help understanding health information?: Rarely 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 Pets and animals: Yes Pets and animals: dog(s) Sexually active: Yes Do you think of yourself as: straight/heterosexual Current gender identity: male What is your relationship status?: How often do you talk on the phone with friends or family?: once per week Do you belong to any clubs or organized social groups?: yes Panel score (0-1 are the most socially isolated patients): 2 What type of physical activity do you participate in: walking, bicycling and other Details: snowshoes in winter Duration: 30-45 minutes/day Frequency: daily Peggy/Jainism: [employer]aritan Special peggy needs: No Seatbelt use: always Helmet use: Yes Drive intox or ride w/intox automobile drivers: No Working smoke detector in home: Yes Fire extinguisher in home: Yes Carbon monox detector in home: Yes Do you feel safe at home: Yes Do you feel safe in your relationship?: Yes Time Spent with Patient Time Spent with Patient: <45 minutes Time was spent: preparing to see the patient(eg.review tests), obtaining and/or reviewing separately otained hiistory, indepentently interpreting results and counseling the patient
[2023-01-12 10:44] LABS: Lyme Ab w Rflx to Lyme Confirm Negative (Negative)
[2023-01-14 16:41] LABS: Anaplasma phagocytophilum Negative (Negative); B. miyamotoi PCR Negative (Negative); Babesia divergens/MO-1 Negative (Negative); Babesia duncani Negative (Negative); Babesia microti Negative (Negative); Ehrlichia chaffeensis Negative (Negative); Ehrlichia ewingii/canis Negative (Negative); Ehrlichia muris eauclairensis Negative (Negative)
== END 2023-01-10 11:39 | disposition home or self-care (01) ==
LOC: ER 01-10 01:39 → MS 01-10 01:56
PROVIDERS: Emergency Medicine; Internal Medicine; Admitting Provider Internal Medicine; Emergency Provider Physician Assistant; PCP Nurse Practitioner; Visit Provider Internal Medicine
DX: M62.82 Rhabdomyolysis (principal); I65.23 Occlusion and stenosis of bilateral carotid arteries; R74.8 Abnormal levels of other serum enzymes; F10.21 Alcohol dependence, in remission; H40.9 Unspecified glaucoma; R31.21 Asymptomatic microscopic hematuria; Z86.010 Personal history of colon polyps; E78.5 Hyperlipidemia, unspecified; H90.3 Sensorineural hearing loss, bilateral
CPT/HCPCS: 36415; 36416; 70496; 70498; 80048; 80053; 80061; 80307; 82550; 82962; 85652; 87798; 93005; 96360; 96361; 99285; 71046; 80320; 81003; 81015; 83036; 83735; 83874; 83880; 84443; 84484; 85025; 85610; 85730; 86140; 86618; 93010; 99223; 99238; G0378; J3490

== ENCOUNTER 2023-01-19 01:07 | Outpatient (CLI) | payer MEDICARE, SELFPAY ==
--- NOTE | 2023-01-19 07:45 | DI.MRI_ITS ---
Exam(s) MR BRAIN WO EXAM: MR BRAIN WO CLINICAL HISTORY: work up for transient global amnesia,g45.4 TECHNIQUE: Multiplanar multisequence MRI of the brain was performed. COMPARISON: CT CT BRAIN NECK CTA from 01/09/2023 FINDINGS: VENTRICLES AND EXTRA AXIAL SPACES: Normal in size and morphology for the patient's age. HEMORRHAGE: None. CEREBRAL PARENCHYMA: No focus of restricted diffusion to suggest acute infarct. No space-occupying le yuniel identified. Minimal high signal foci in the white matter consistent with microvascular changes. MIDLINE SHIFT: None. BRAINSTEM/CEREBELLUM: Normal. CALVARIUM: Normal. VISUALIZED PARANASAL SINUSES/MASTOIDS: Tiny mucous retention cyst at the floor of the right maxillary sinus, otherwise clear. OTHER FINDINGS: None. IMPRESSION: Unremarkable MRI of the brain. DATA REPOSITORY:
--- NOTE | 2023-01-19 10:56 | DI.RAD_ITS ---
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 COMPARISON: No exams were available for comparison TECHNIQUE: 2D digital imaging was performed. Three views. FINDINGS: No fracture or radiopaque foreign body. Sinuses appear clear as visualized. IMPRESSION: No evidence metallic foreign body. DATA REPOSITORY: RADIATION DOSE DELIVERED:
== END 2023-01-19 01:27 ==
LOC: DI 01:07
PROVIDERS: PCP Nurse Practitioner; Visit Provider Nurse Practitioner
DX: G45.4 Transient global amnesia (principal)
CPT/HCPCS: 70030; 70551

== ENCOUNTER → 2023-01-22 13:45 | Outpatient (BNVA) | payer MEDICARE, SELFPAY | PROVIDERS: PCP Nurse Practitioner; Referring Provider Nurse Practitioner; Visit Provider Psychiatry & Neurology Neurology | DX: G45.4 Transient global amnesia (principal) | CPT/HCPCS: 99214 ==

== ENCOUNTER 2024-06-03 01:07 | Outpatient (CLI) | payer MEDICARE, SELFPAY ==
--- OUTSIDE RECORDS SUMMARY | 2024-06-03 01:11 | XMS_ITS | Encounter Summary ---
Author Organization [facility] Address [address] [place] [address] Care Team Providers Care Subsurface Augmentee Elint Operator Name Role Phone Unknown, Provider Primary Care Provider [phone] Encounter Details Date Type Department Care Team (Late st Contact Info) Description 02/21/2019 Results Only [facility] [phone] Hawa Hernández MD [address] [place] [address] [address] [place], [place] [id number] Social History Tobacco Use Types Packs/Day Years Used Date Smoking Tobacco: Never Assessed Sex and Gender Information Value Date Recorded Sex Assigned at Not on file Gender Identity Not on file Sexual Orientation Not on file documented as of this encounter Plan of Treatment Not on file documented as of this encounter Procedures Procedure Name Priority Date/Time Associated Diagnosis Comments SURGICAL PATHOLOGY Routine 02/21/2019 16 :20 EDT documented in this encounter Results * SURGICAL PATHOLOGY (02/21/2019 16:20 EDT) Pathology Report: SURGICAL PATHOLOGY REPORT Reports generated via electronic interface contain original data; however they are lacking the format of the original report. Caution should be taken when reading/interpret ing unformatted reports. Name: ? FRANCK FERNANDES ? Accession #: ? [id number] ? : ? 1955 (Age: 63) ??M ? Collect Date: ? 02/21/2019 ? Location: ? [facility] ? Receive Date: ? 02/21/2019 ? Provider: HAWA HERNÁNDEZ MD Copy to: GINNY GALLEGOS CORDUROY BRUSHER OPERATOR ? Final Pathologic Diagnosis: A. COLON, ASCENDING, POLYP, BIOPSY: - ??Superficial fragments of inflamed tubulovillous adenoma. B. COLON, TRANSVERSE, POLYP, BIOPSY: - ?? Fragment of tubular adenoma. C. RECTUM, POLYP BIOPSY: - ??Fragments of inflamed tubular adenoma. Document reviewed and electronically signed by: IGNACIO JAMIL MD Report ??Date: 02/23/2019 15:44 By the signature above, the attending physician certifies that he/she has personally conducted a gross and/or microscopic examination of the described specimens and rendered or confirmed the above diagnosis. Specimen(s) Received: A. ??Ascending colon polyp B. ??Transverse colon polyp C. ??Rectal polyp Clinical History: Screening for colon cancer Gross Description: A. ?Received in formalin labelled with proper patient identification (initials B, D) and ascending colon polyp are multiple fragmented lance and brown tissues aggregating 0.9 x 0.7 x 0.2 cm. Entirely submitted in A1. B. ?Received in formalin labelled with proper patient identification (initials B, D) and transverse colon polyp is a lance nodular tissue, 0.1 cm in greatest dimension. Entirely submitted in B1. C. ?Received in formalin labelled with proper patient identification (initials B, D) and rectal polyp are lance-brown irregular tissue fragments aggregating 0.5 x 0.3 x 0.1 cm. Entirely submitted in C1. DAVID Gibson (ASCP) 02/21/2019 4:42 PM End of Report [facility] 02/21/2019 16:2 0 EDT 02/21/2019 16:20 EDT Hawa Hernández MD PATHOLOGY ORDERA MOJGAN [facility] [address] [place] [id number] documented in this encounter Visit Diagnoses Not on filedocumented in this encounter Care Teams Subsurface Augmentee Elint Operator Relationship Specialty Start Date End Date Unknown, Provider, PCP - General 02/21/19 02/23/19 documented as of this encounter
--- OUTSIDE RECORDS SUMMARY | 2024-06-03 01:11 | XMS_ITS | Referral Summary ---
Author Organization [facility] Address [address] [place] [address] Care Team Providers Care Larder Cook Name Role Phone Bee Velazquez NP Primary Care Provider [phone] Social History Tobacco Use Types Packs/Day Years Used Date Smoking Tobacco: Never Assessed Interpersonal Safety Answer Date Record ed Physically Hurt Never 04/16/2020 Verbally Threaten Not on file 04/16/2020 Sex and Gender Information Value Date Recorded Sex Assigned at Not on file Gender Identity Not on file Sexual Orientation Not on file Plan of Treatment Not on file Care Teams Larder Cook Relationship Specialty Start Date End Date Bee Velazquez NP [address] [place] [id number] PCP - General 02/24/19
--- OUTSIDE RECORDS SUMMARY | 2024-06-03 01:11 | XMS_ITS | Encounter Summary ---
Author Organization [facility] [place] [address] Care Team Providers Care Plywood Layup Line Core Layer Name Role Phone Unknown Primary Care Provider Unavailabl e Encounter Details Date Type Department Care Team (Late st Contact Info) Description 01/10/2023 External Results [place] [id number] Social History Tobacco Use Types Packs/Day Years Used Date Smoking Tobacco: Never Sex and Gender Information Value Date Recorded Sex Assigned at Not on file Gender Identity Not on file Sexual Orientation Not on file documented as of this encounter Plan of Treatment Not on file documented as of this encounter Procedures Procedure Name Priority Date/Time Associated Diagnosis Comments ECG SCAN Routine 01/10/2023 ECG SCAN Routine 01/10/2023 documented in this encounter Results * Scan Doc: ECG (01/10/2023) Historical Provider MD MEDIA MGR SCAN EX T ORDR/RSLT * Scan Doc: ECG (01/10/2023) Historical Provider MD MEDIA MGR SCAN EX T ORDR/RSLT documented in this encounter Visit Diagnoses Not on filedocumented in this encounter Care Teams Plywood Layup Line Core Layer Relationship Specialty Start Date End Date Unknown None PCP - General 06/24/17 documented as of this encounter
--- OUTSIDE RECORDS SUMMARY | 2024-06-03 01:11 | XMS_ITS | Encounter Summary ---
Author Organization [facility] Address [address] [place] [address] Care Team Providers Care Rayon Coner Name Role Phone Bee Velazquez EXPLOSIVES WORKER Primary Care Provider [phone] Encounter Details Date Type Department Care Team (Late st Contact Info) Description 01/11/2023 Lab Requisition [facility] Pathology & Laboratory Medicine - [facility] [address], [place] [address] Outr Resulting Lab, Provider Social History Tobacco Use Types Packs/Day Years [...] Procedure Name Priority Date/Time Associated Diagnosis Comments LYME AB Routine 01/10/2023 5:50 EDT documented in this encounter Results * LYME AB (01/10/2023 5:50 EDT) Lyme Ab Negative Negative 01/12/2023 10:40 EDT [facility] Blood VENOUS BLOOD / Unknown 01/10/2023 5:50 EDT 01/11/2023 15:46 EDT Provider Outr Resulting Lab IMMUNOLOGY A ND SEROLOGY ORDERABLES [facility] [address] [place] [address] documented in this encounter Visit Diagnoses Not on filedocumented in this encounter Care Teams Rayon Coner Relationship Specialty Start Date End Date Bee Velazquez, CORI [address] [place] [address] PCP - General 02/24/19 documented as of this encounter
--- OUTSIDE RECORDS SUMMARY | 2024-06-03 01:11 | XMS_ITS | Encounter Summary ---
Author Organization [facility] [place] [address] Care Team Providers Care Cathode Ray Tube Assembler Name Role Phone Unknown Primary Care Provider Unavailabl e Encounter Details Date Type Department Care Team (Late st Contact Info) Description 01/09/2023 12:05 AM EDT Ancillary Procedure Radiology Library at [facility] [place] [id number] Ninoska Porter MD [facility] [place] [address] Social History Tobacco Use Types Packs/Day Years Used Date Smoking Tobacco: Never Sex and Gender Information Value Date Recorded Sex Assigned at Not on file Gender Identity Not on file Sexual Orientation Not on file documented as of this encounter Plan of Treatment Not on file documented as of this encounter Procedures Procedure Name Priority Date/Time Associated Diagnosis Comments FILM LIBRARY STORAGE ONLY CT HEAD AND SPINE Routine 01/09/2023 12:05 AM EDT documented in this encounter Results * Film Library- Storage Only CT Head And Spine (01/09/2023 12:05 AM EDT) Narrative RAD - 01/10/2023 12:04 AM EDT This exam is auto-finalizing. It's purpose is for storage only. Ninoska Porter MD IMG FILM LIBRARY O RDERABLES [facility] [place] documented in this encounter Visit Diagnoses Not on filedocumented in this encounter Care Teams Cathode Ray Tube Assembler Relationship Specialty Start Date End Date Unknown None PCP - General 06/24/17 documented as of this encounter
--- OUTSIDE RECORDS SUMMARY | 2024-06-03 01:11 | XMS_ITS | Encounter Summary ---
Author Organization [facility] [place] [address] Care Team Providers Care Milk Pickup Driver Name Role Phone Gen Rivers MD Primary Care Provider + Reason for Visit * Reason Comments Referral Encounter Details Date Type Department Care Team (Late st Contact Info) Description 08/30/2015 1:00 PM EST Office [place] [address] Vladislav Schmidt MD [facility] [place] [address] Medial epicondylitis of elbow, unspecified laterality Social History Tobacco Use Types Packs/Day Years Used Date Smoking Tobacco: Never Sex and Gender Information Value Date Recorded Sex Assigned at Not on file Gender Identity Not on file Sexual Orientation Not on file documented as of this encounter Last Filed Vital Signs Vital Sign Reading Time Taken Comments Blood Pressure 139/77 08/30/2015 12:56 PM EST Pulse 72 08/30/2015 12:56 PM EST Temperature 36.5 ??C (97.7 ??F) 08/30/2015 12:[address] Respiratory Rate - - Oxygen Saturation 99% 08/30/2015 12:56 PM EST Inhaled Oxygen Concentration - - Weight 83 kg (183 lb) 08/30/2015 12:56 PM EST Height 177.8 cm (5' 10) 08/30/2015 12:56 PM EST Body Mass Index 26.26 08/30/2015 12:56 PM EST documented in this encounter Progress Notes * Vladislav Schmidt MD - 08/30/2015 1:15 PM EST RHEUMATOLOGY STAFF OFFICE NOTE Patient Name: Kentrell Fernandes Date of encounter: 08/30/2015 Mr. Fernandes is a 60 y.o. male whom I am seeing at the request of GEN RIVERS MD for evaluation of arthritis. He indicates that he is having joint pain in the elbows. This started the end of the summer. This pain is there to some degree all the time. However, this will be exacerbated if he is pushing sideways with the arms, though not lifting or doing push-ups. This seems to be present at a low level all day, with no worsening by time of day. There is no swelling, no redness. He can't think of anything in his routine that changed around this time. There are no other joints that are giving him trouble. Other than the elbow pain he has been having some headache and some dizziness which happened aroundthe same time. This started with walking up and feeling like he had the flu. This seemed to get better over a couple of days, but still persisted to some degree. He has continued to have a mild headache. He will still get some dizziness He did develop shingles about one month ago in the right buttock and groin, but that has cleared. He took acyclovir or valcyclovir for one week (can't recall which). ROS: Energy level is fine. There are no fevers or weight changes. Still will have a little dizziness. There is no ringing in the ears. There has not been any mouth sores. He does have a mild headache. There is no rash, no chest pain, no shortness of breath or cough. The bowels are fine. The rest ofthe ROS was reviewed and is found to be negative. PMH - Shingles - Inguinal herniorrhaphy HOME MEDICATIONS: Current Outpatient Prescriptions Medication Sig Dispense Refill ??? latanoprost (XALATAN) 0.005 % Drops Place 1 drop into both eyes nightly. No current facility-administered medications for this visit. ALLERGIES/ADVERSE REACTIONS No Known Allergies FAMILY HISTORY: He is not aware of any autoimmune disease in the family. SOCIAL HISTORY: Lives in [place], [place], is without kids. 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 No tobacco. 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 PHYSICAL EXAM BP 139/77 mmHg Pulse 72 Temp(Src) 36.5 ??C (97.7 ??F) (Oral) Ht 177.8 cm (5' 10) Wt 83.008kg (183 lb) BMI 26.26 kg/m2 SpO2 99% Gen: Alert, NAD, oriented, conversant HEENT: Anicteric, no scleral injection, OP clear, MMM, Left TM clear, right with cerumen Neck: supple, no LAD, no thyromegaly Ext: No LE edema, nodules or cyanosis Joint exam: A full joint exam was performed: Shoulders: Normal ROM, no tenderness Elbows: Normal, no swelling, minimal medial epicondyle tenderness Wrists: No swelling, no tenderness, full flexion and extension Hands: No tenderness or swelling of the MCPs, PIPs, DIPs. Full fist and claw Knees: No tenderness Ankles: No tenderness, no Achilles pain. Feet: No MTP tenderness. Skin: No rashes or erythema Neuro: griddle cook are intact. LABORATORY DATA I have reviewed labs from the PCP including a negative Lyme, CRP of <0.05, and normal CMP and CBC. ASSESSMENT AND PLAN Mr. Fernandes is a 60 year old with bilateral elbow pain for the last several months. It is a little difficult to know exactly what he has as I cannot fully reproduce his pain. However, he points to the medial epicondyle and there is minimal tenderness there, so I suspect that this represents a bilateral medial epicondylitis. His weight lifting and job as a machinist supervisor outside probably contribute to his symptoms. Fortunately, this is not more severe. I have a low suspicion that this represents a significant arthritis. I have educated him about epicondylitis. I have instructed him to take naproxen 2 tabs with meals twice daily for 10 days. If still symptomatic he can increase that to 2 or 3 weeks. I also have advised that he use a tennis elbow band to see if this can help. I have also counseled him to try to prevent flexion of his wrist when doing weight lifting or similar activities. I do not know how to tie this in with the recent episode of shingles or with his mild headache and dizziness. I don't plan to see him back - but have given him my card in case he has questions. documented in this encounter Plan of Treatment Not on file documented as of this encounter Visit Diagnoses Diagnosis Medial epicondylitis of elbow, unspecified laterality documented in this encounter Care Teams Milk Pickup Driver Relationship Specialty Start Date End Date Gen Rivers MD [address] [place] [address] PCP - General General Internal Medicine 07/06/1506/30 documented as of this encounter
--- OUTSIDE RECORDS SUMMARY | 2024-06-03 01:11 | XMS_ITS | Encounter Summary ---
Author Organization [facility] [place] [address] Care Team Providers Care Robotic Welding Operator Name Role Phone Unknown Primary Care Provider Unavailabl e Encounter Details Date Type Department Care Team (Late st Contact Info) Description 01/09/2023 Ancillary Procedure Radiology Library [place] [address] Ninoska Porter MD [facility] [place] [address] Social History Tobacco Use Types Packs/Day Years Used Date Smoking Tobacco: Never Sex and Gender Information Value Date Recorded Sex Assigned at Not on file Gender Identity Not on file Sexual Orientation Not on file documented as of this encounter Plan of Treatment Not on file documented as of this encounter Procedures Procedure Name Priority Date/Time Associated Diagnosis Comments FILM LIBRARY STORAGE ONLY DX CHEST Routine 01/09/2023 12:00 AM EDT documented in this encounter Results * Film Library- Storage Only DX Chest (01/09/2023 12:00 AM EDT) Narrative [facility] - 01/10/2023 12:04 AM EDT This exam is auto-finalizing. It's purpose is for storage only. Ninoska Porter MD IMG FILM LIBRARY O RDERABLES [facility] [place] documented in this encounter Visit Diagnoses Not on filedocumented in this encounter Care Teams Robotic Welding Operator Relationship Specialty Start Date End Date Unknown None PCP - General 06/24/17 documented as of this encounter
--- OUTSIDE RECORDS SUMMARY | 2024-06-03 01:11 | XMS_ITS | Clinical Summary ---
Author Organization [facility] Address [address] [place] [address] Care Team Providers Care Nylon Machine Operator Name Role Phone Bee Velazquez NP Primary Care Provider [phone] Social History Tobacco Use Types Packs/Day Years Used Date Smoking Tobacco: Never Assessed Interpersonal Safety Answer Date Record ed Physically Hurt Never 04/16/2020 Verbally Threaten Not on file 04/16/2020 Sex and Gender Information Value Date Recorded Sex Assigned at Not on file Gender Identity Not on file Sexual Orientation Not on file Plan of Treatment Health Maintenance Due Date Last Done Comments Hepatitis C Screen 1957 RSV Immunization ( o r 60+ Years) (1 - 1-dose 60+ series) 2017 Fall Risk Screening 2022 COVID-19 Vaccine ( season) 2023 Care Teams Nylon Machine Operator Relationship Specialty Start Date End Date Bee Velazquez NP [address] [place] [address] PCP - General 02/24/19
--- OUTSIDE RECORDS SUMMARY | 2024-06-03 01:11 | XMS_ITS | Encounter Summary ---
Author Organization [facility] Address [address] [place] [address] Care Team Providers Care Car Wash Manager Name Role Phone Unknown, Provider Primary Care Provider Encounter Details Date Type Department Care Team (Latest Contact Info) Description 02/21/2019 10:57 EDT - 02/21/2019 23:59 EDT Hospital Encounter [address] [address] Unknown, Provider, Discharge Disposition: Home or Self Care Social History Tobacco Use Types Packs/Day Years Used Date Smoking Tobacco: Never Assessed Sex and Gender Information Value Date Recorded Sex Assigned at Not on file Gender Identity Not on file Sexual Orientation Not on file documented as of this encounter Discharge Disposition Disposition Code Departure Means Destination Home or Self Residential documented in this encounter Plan of Treatment Not on file documented as of this encounter Visit Diagnoses Not on filedocumented in this encounter Care Teams Car Wash Manager Relationship Specialty Start Date End Date Unknown, Provider, PCP - General 02/21/19 02/23/19 documented as of this encounter
--- OUTSIDE RECORDS SUMMARY | 2024-06-03 01:11 | XMS_ITS | Encounter Summary ---
Author Organization [facility] Address [address] [place] [address] Care Team Providers Care Prescription Clerk Lenses Name Role Phone Bee Velazquez FIBERGLASS ROVING WINDER Primary Care Provider [phone] Encounter Details Date Type Department Care Team (Late st Contact Info) Description 09/04/2022 Lab Requisition [facility] Pathology & Laboratory Medicine - [facility] [address] [place] [address] Leo Fletcher MD [address] [place] [address], [address] [place], [place] [id number] Polyp of colon; Encounter for screening for malignant neoplasm of colon Social History Tobacco Use Types Packs/Day Years [...] Priority Date/Time Associated Diagnosis Comments SURGICAL PATHOLOGY Today 09/04/2022 12 :31 EST Polyp of colon documented in this encounter Results * SURGICAL PATHOLOGY (09/04/2022 12:31 EST) Note to Patient The following pathology results have been interpreted by your pathologist and may be available to you before your health provider has had the opportunity to review them. Please allow time for your provider to receive these results and explore management options, if applicable. 09/09/2022 13:24 [facility] Final Diagnosis A. COLON, 45 CM, POLYP: - Tubular adenoma. B. COLON, 20 CM, POLYPS: - Tubular adenomas. 09/09/2022 13:24 [facility] Attestation By the signature below, the attending physician certifies that they have 1) personally conducted a gross and/or microscopic examination of the described specimen(s), and/or personally interpreted the results of laboratory testing of the described specimen(s), and 2) personally rendered or confirmed the above diagnosis. 09/09/2022 13:24 [facility] at 1323 Clinical History Colon cancer screening; history of polyps 09/09/2022 13:24 [facility] Gross Description A. Received in formalin labelled with proper patient identification (initials B, D) and 1. Polyp @ 45 cm is a single lance-brown tissue (0.5 x 0.2 x 0.1 cm). Submitted intact in A1. B. Received in formalin labelled with proper patient identification (initials B, D) and 2. Polyps @ 20 cm are 2 lance-brown and brown polypoid tissues (each 0.3 x 0.2 x 0.2 cm). Entirely submitted in B1. HEATHER ANGELO 09/05/2022 12:51 09/09/2022 13:24 [facility] Performing Lab [facility] 09/09/2022 13:24 [facility] Scanned Images 09/09/2022 13:24 [facility] Tissue ENTIRE COLON / Unknown 09/04/2022 12:31 EST 09/04/2022 19:45 EST Tissue specimen (specimen) COLON STRUCTURE / Unknown 09/04/2022 12:31 EST 09/04/2022 19:45 EST Leo Fletcher MD PATHOLOGY ORDERABLES [facility] [address] [place] [address] documented in this encounter Visit Diagnoses Diagnosis Polyp of colon Benign neoplasm of colon Encounter for screening for malignant neoplasm of colon Special screening for malignant neoplasms, colon documented in this encounter Care Teams Prescription Clerk Lenses Relationship Specialty Start Date End Date Bee Velazquez NP [address] [place] [address] PCP - General 02/24/19 documented as of this encounter
--- OUTSIDE RECORDS SUMMARY | 2024-06-03 01:11 | XMS_ITS | Encounter Summary ---
Author Organization [facility] [place] [address] Care Team Providers Care Decorating And Assembly Supervisor Name Role Phone Unknown Primary Care Provider Unavailabl e Encounter Details Date Type Department Care Team (Late st Contact Info) Description 01/10/2023 [place] [phone] Richar Sandoval MD [facility] [place] [address] Social History Tobacco Use Types Packs/Day Years Used Date Smoking Tobacco: Never Sex and Gender Information Value Date Recorded Sex Assigned at Not on file Gender Identity Not on file Sexual Orientation Not on file documented as of this encounter Miscellaneous Notes * Telephone Encounter - Richar Sandoval MD - 01/10/2023 12:47 AM EDT Telephone Triage Note 01/10/2023 Kentrell Fernandes Initial Contact Date: 01/10/2023 Initial contact time: 12:48 AM Referring Provider: Cindy Del Rio Patient Location: [facility] Contacted by [facility] ED for cardiology consultation. History taking and objective data are per the [facility] ED provider/staff member. History Of Present Illness: Kentrell Fernandes is a 67 y.o. male who presented to the above location with transient global amnesia (per neuro). No chest pain, no trouble breathing. Currently back to normal mental status bowen. Vital Signs at OSH 140/75 69 97ra 17 Physical Exam Significant For No focal deficits Pertinent Diagnostic Findings: Scanned EKG demonstrates NSR Labs: -Troponin: 99 --> 121 (ULN < 60) Assessment: Given above history, presentation, and data, this episode most likely represents trop of unclear significance. No chest pain or SOB and patient presented with amnesia. Likely in the setting of neurologic findings. Plan: Trend trops Above recommendations were based on my discussion with covering provider, I have not personally interviewed or examined this patient. Advised to call the transfer center back with any changes in the patient condition. Richar Sandoval Spool Maker [id number] documented in this encounter Plan of Treatment Not on file documented as of this encounter Visit Diagnoses Not on filedocumented in this encounter Care Teams Decorating And Assembly Supervisor Relationship Specialty Start Date End Date Unknown None PCP - General 06/24/17 documented as of this encounter
--- OUTSIDE RECORDS SUMMARY | 2024-06-03 01:11 | XMS_ITS | Clinical Summary ---
Author Organization [facility] Address [facility] [place] [address] Care Team Providers Care Fine Arts Instructor Name Role Phone Unknown Primary Care Provider Unavailabl e Allergies No known active allergies Medications Medication Sig Dispensed Refills Start Date End Date Status latanoprost (XALATAN) 0.005 % Drops Place 1 drop into both eyes nightly. 07/15/2015 Active Immunizations Name Administration Dates Next Due Influenza Trivalent w/Preservative 06/24/2015 Social History Tobacco Use Types Packs/Day Years Used Date Smoking Tobacco: Never Sex and Gender Information Value Date Recorded Sex Assigned at Not on file Gender Identity Not on file Sexual Orientation Not on file Last Filed Vital Signs Vital Sign Reading [...] Mass Index 26.26 08/30/2015 12:56 PM EST Plan of Treatment Health Maintenance Due Date Last Done Comments CT Colonography 1955 Colonoscopy 1957 Colorectal Cancer Screening 1955 FIT DNA 1957 FIT 1957 Sigmoidoscopy (10 year) with FIT yearly 1957 Sigmoidoscopy 1957 Hepatitis C Screening 1975 Lipid Screening 1975 Tdap adult 1976 Tetanus vaccine 1976 Zoster vaccine (1 of 2) 2007 Advance Directive 2012 Pneumoccocal Vaccine: 65+ (1 of 1 - PCV) 2022 Covid-19 Vaccine (1 - 2022- season) 2024 Influenza (Flu) vaccine (1 o f 1 - Influenza standard series) 05/15/2024 06/24/2015 Care Teams Fine Arts Instructor Relationship Specialty Start Date End Date Unknown None PCP - General 06/24/17
[2024-06-03 08:13] LABS: HCT 41.7 % (40.0-50.0); HGB 14.4 g/dL (13.5-17.5); MCH 30.9 pg (27.0-33.0); MCHC 34.5 % (32.0-36.0); MCV 90 fL (80-95); MPV 9.6 fL (8.0-11.0); Platelet Count 192 10^3/uL (130-400); RBC 4.66 10^6/uL (4.36-5.78); RDW 14.4 % (11.8-14.1); RDW-SD 46.3 fL; WBC 4.98 10^3/uL (4.4-10.8)
[2024-06-03 08:42] LABS: ALT 20 U/L (16-63); AST 17 U/L (15-37); Albumin 3.7 g/dL (3.4-5.0); Alkaline Phosphatase 38 U/L (46-116); Anion Gap 7.2 mmol/L (3-11); BUN 22 mg/dL (7-18); Bilirubin, Total 0.96 mg/dL (0.2-1.0); CO2 28.8 mmol/L (21.0-32.0); Calcium 9.3 mg/dL (8.5-10.1); Calculated LDL 121 mg/dL (<100); Chloride 108 mmol/L (98-107); Cholesterol 188 mg/dL (<200); Estimated GFR 82.49 (mL/min/1.73m2); Glucose 99 mg/dL (74-106); HDL Cholesterol 54 mg/dL (40-60); Potassium 4.4 mmol/L (3.5-5.1); Sodium 144 mmol/L (136-145); Total Protein 6.6 g/dL (6.4-8.2); Triglyceride 67 mg/dL (<150)
== END 2024-06-03 01:08 | disposition home or self-care (01) ==
LOC: LBO 01:08
PROVIDERS: PCP Nurse Practitioner; Referring Provider Nurse Practitioner; Visit Provider Nurse Practitioner
DX: E78.5 Hyperlipidemia, unspecified (principal); D64.9 Anemia, unspecified
CPT/HCPCS: 36415; 80053; 80061; 85027

== ENCOUNTER 2025-06-07 04:09 | Outpatient (CLI) | payer MEDICARE, SELFPAY ==
[2025-06-07 10:27] LABS: Anion Gap 8.1 mmol/L (3-11); BUN 19 mg/dL (7-18); CO2 27.9 mmol/L (21.0-32.0); Calcium 9.0 mg/dL (8.5-10.1); Calculated LDL 126 mg/dL (<100); Chloride 104 mmol/L (98-107); Cholesterol 190 mg/dL (<200); Estimated GFR 93.03 (mL/min/1.73m2); Glucose 89 mg/dL (74-106); HDL Cholesterol 48 mg/dL (>or=40); Potassium 4.2 mmol/L (3.5-5.1); Sodium 140 mmol/L (136-145); Triglyceride 81 mg/dL (<150)
[2025-06-07 17:58] LABS: PSA, Screening 1.7 ng/mL (<=4.5)
== END 2025-06-07 04:10 | disposition home or self-care (01) ==
LOC: LBO 04:10
DX: E78.5 Hyperlipidemia, unspecified (principal); Z00.00 Encounter for general adult medical examination without abnormal findings; Z12.5 Encounter for screening for malignant neoplasm of prostate
CPT/HCPCS: 36415; 80048; 80061; 84153

== ENCOUNTER 2025-06-26 02:11 | Outpatient (CLI) | payer MEDICARE, SELFPAY ==
--- NOTE | 2025-06-26 06:30 | DI.US_ITS ---
Exam(s) US SOFT TISSUE HEAD OR NECK EXAM: US SOFT TISSUE HEAD OR NECK CLINICAL HISTORY: Posterior neck mass,r22.1. TECHNIQUE: Ultrasound was performed using standard protocol. COMPARISON: No exams were available for comparison FINDINGS: Sonographic assessment utilizing grayscale and color Doppler imaging was performed and targeted to the area of clinical concern. Posterior midline of the neck there is a 2.3 x 0.7 x 2 0.0 cm homogeneous circumscribed fatty echogenicity lesion consistent with a lipoma. An additional lipoma is noted more inferiorly measuring 3.3 x 0.9 x 2 cm. The 3rd lipoma is noted laterally measuring 1.3 x 0.6 x 1 cm. 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 DATA REPOSITORY:
== END 2025-06-26 02:31 ==
LOC: DI 02:11
DX: D17.0 Benign lipomatous neoplasm of skin and subcutaneous tissue of head, face and neck (principal)
CPT/HCPCS: 76536

== ENCOUNTER → 2025-07-04 10:25 | Outpatient (BNVA) | payer MEDICARE, SELFPAY | PROVIDERS: Visit Provider Student in an Organized Health Care Education/Training Program | DX: R22.1 Localized swelling, mass and lump, neck (principal) | CPT/HCPCS: 99213 ==

== ENCOUNTER 2025-07-21 06:04 | Day surgery (SDC) | payer MEDICARE, SELFPAY ==
[2025-07-21 06:32] VITALS: BP 132/74; PULSE 59; RESP 14; TEMP 36.5; O2SAT 100
[2025-07-21] MEDS: Lactated Ringers 1,000 ML 80 ML IV (06:45)
[2025-07-21 06:59] VITALS: BMI 25.4
--- NOTE | 2025-07-21 06:59 | W.ANESPRE ---
General Info Date of Service Date Performed: 07/21/25 Height: 5 ft 9 in Weight: 78.1 kg Body Mass Index (BMI): 25.4 Surgical Procedure: Operation Date: 07/21/25 07:40 Proposed Procedure Side Surgeon p Excision of Soft Tissue Mass Posterior Neck Alexandrea Lobo MD Meds Allergies and Home Medications Allergies Allergy/AdvReac Type Severity Reaction Status Date / Time No Known Allergies Allergy Verified 07/21/25 06:19 Home Medication Medication Instructions Recorded latanoprost 0.005 % eye drops 1 drp ophthalmic (eye) DAILY 04/16/22 timolol 0.25 % eye drops 1 drp ophthalmic (eye) DAILY 05/18/24 Current Visit Medications: Current Medications Generic Name Dose Route Start Last Admin Trade Name Freq PRN Reason Stop Dose Admin Ringer's Solution 1,000 mls @ 80 mls/hr 07/21/25 06:00 07/21/25 06:45 IV 07/21/25 23:59 80 mls/hr INFUSION WALESKA Administration Cefazolin Sodium/Dextrose 2 gm in 50 mls @ 100 mls/hr 07/21/25 06:00 Ancef Duplex IVPB 07/21/25 23:59 PREOP WALESKA IV Miscellaneous Supplies 1 each 07/21/25 06:00 Iv Access IV 07/21/25 23:59 DIRECTED WALESKA Sodium Chloride 0 ml 07/21/25 06:00 Normal Saline Flush 10 Ml Syr IV 07/21/25 23:59 PRN PRN Sodium Chloride 0 ml 07/21/25 06:00 Normal Saline 10 Ml Vial IJ 07/21/25 23:59 DIRECTED PRN Sterile Water 0 ml 07/21/25 06:00 Water,Injection,Sterile 10 Ml Vial IJ 07/21/25 23:59 DIRECTED PRN PFSH Active Problems Active Problems: Problem Status Onset Code Bilateral carotid artery stenosis Acute I65.23 Asymptomatic microscopic hematuria Acute R31.21 Araecli-rectal abscess Acute K61.1 Encounter for routine history and physical examination Acute Z00.00 Tubular adenoma Acute 02/2019 D36.9 Internal hemorrhoids without complication Acute K64.8 Colorectal polyps Acute K63.5 Glaucoma Chronic H40.9 Disequilibrium Acute 09/03/15 R42 Hyperlipidemia Chronic 02/15/13 E78.5 Sensorineural hearing loss, bilateral Acute 09/03/15 H90.3 Medical History Medical History Positive colorectal cancer screening using Cologuard test Transient global amnesia Elevated troponin Elevated troponin Transient global amnesia 4-quinolones overdose (02/15/13) Recovering alcoholic in remission Surgical History Surgical History S/P colonoscopy (~02/21/19) History of colonoscopy (~09/2022) Hx of hernia repair Tobacco Smoking/Tobacco Use Status: Never Passive smoking exposure: No Second hand exposure: No Alcohol Alcohol Intake: former Year quit: Substance Use Substance use: Never Substance use type: does not use Vital Signs and Lab Results Vital Signs Most Recent Vital Signs in EMR: Most Recent Vital Signs Temp Pulse Resp BP Pulse Ox 36.5 C 59 L 14 132/74 100 07/21/25 06:32 07/21/25 06:32 07/21/25 06:32 07/21/25 06:32 07/21/25 06:32 Anesthesia Assessment and Plan Anesthesia History Personal History: No History of Anesthesia Complications Family History: No Family History of Anesthesia Complications Exercise Tolerance Exercise Tolerance: Metabolic Equivalents>4 Pertinent Negatives Pertinent Negatives: No Symptoms of GERD Cardiac & Pulmonary Exam Cardiac Exam: Normal S1/S2 Heart Sounds Pulmonary Exam: Clear Bilateral Breath Sounds Implantable Cardiac Device Does patient have a Pacemaker or an ICD?: No Airway Exam Known Difficult Airway: No Mallampati Class: 2 Mouth Opening: Normal (> 3cm) Thyromental Distance: Greater than 3 cm Neck Range of Motion: Full ROM Neck Circumference: Normal Teeth Condition: Normal Dentition ASA Classification ASA Score: ASA 2 Emergency Case?: No NPO Status NPO Status: NPO Clears >2 hours, Solids >8 hours Anesthesia Plan Resuscitation Status: Full Code Anesthesia Technique: General Anesthesia Airway Planned: Natural Airway Monitors Used: Standard Monitors
[2025-07-21] MEDS: ceFAZolin 2 GM/50 ML BAG IVPB (07:43)
[2025-07-21] MEDS: Bupivacaine 0.25% Pres-Free W/EPI 30 ML VIAL (07:56)
--- NOTE | 2025-07-21 08:06 | SOFT_PTH ---
PATIENT: Kentrell Fernandes JR LOC: [facility] U#:[id number] AGE/SX: 70/M ROOM: RE07/21/[address]: Alexandrea Lobo : 1955 BED: DIS: 07/21/2025 SPEC #: [id number] RECD: 07/21/25 12:31 STATUS: THAO REJamil #: [id number] FREDY: 07/21/25 08:[address]: Alexandrea Lobo DEPT: Surgical Specimen RECD BY: Michelle Arriola ENTERED: 07/21/25 12:31 SP TYPE: SOFT OTHR DR: Jordan Howe Tissues: 1 - SOFT TISSUE MISC (INC. LIPOMA) Procedures: GROSS AND MICRO LEVEL 3 Comments: [id number]
[2025-07-21 08:30] VITALS: BP 100/62; PULSE 67; RESP 14; TEMP 36.3; O2SAT 95
--- NOTE | 2025-07-21 08:32 | W.PM.DSUDISC ---
Date of service: 07/21/25 Discharge Plan Disposition Patient Disposition: Home Condition: Good Discharge Details Reason For Visit: Posterior neck mass Attending Provider: Alexandrea Lobo Primary Care Provider: Jordan Howe Recommendations for Follow Up Recommended tests to be ordered by follow up provider: Follow up pathology Home Meds and New Rx's Prescriptions: No Action latanoprost 0.005 % drops 1 drp ophthalmic (eye) DAILY Rx Instructions: both eyes for glucoma timolol 0.25 % drops 1 drp ophthalmic (eye) DAILY Rx Instructions: 1 gtt ou qd Discharge Instructions Instructions: Surgical Wound (DC) Additional Instructions: Your procedure went well today. The mass was removed and sent to pathology. We will likely have pathology results at your follow up appointment. You do have sutures that will need removed in clinic at your follow up appointment. You may remove the outer dressing and shower tomorrow and allow warm soapy water over your incision. Pat the incision dry and do not rub the area. You may apply a dry dressing if there is drainage from the incision. If you are worried about the incision please contact the general surgery office. You may alternate Tylenol and ibuprofen for pain control as well as apply ice to the incision. There are no activity restrictions. Please contact the general surgery office if you have any questions or concerns. Stand Alone Forms: Portal Information Activity:: Activity as Tolerated Remove Dressings/Wound Care:: 24 hours Shower/Bathe:: 24 hours Diet:: As Tolerated Discharge Orders Discharge Orders: Discharge Order (Routine); Ordered 07/21/25 Ordered By: Alexandrea Lobo
--- NOTE | 2025-07-21 08:39 | W.PM.OP ---
Operative Note Operative Note PRE-OP DIAGNOSIS: Soft tissue mass of posterior neck POST-OP DIAGNOSIS: same PROCEDURE: Excision of soft tissue mass of posterior neck SURGEON: Alexandrea Lobo [employer] ENG[employer]ERING DES[employer] DRAFTSPERSON: Stephany Cooper ANESTHESIA TYPE: Local By Surgeon and MAC Refer to Anesthesia Record ESTIMATED BLOOD LOSS: 5 PATHOLOGY: other (Soft tissue mass of posterior neck ) COMPLICATIONS: None Patient was transported to: PACU Patient's condition: stable Implants: None Indications: Patient is a 70 yo male who presented with a soft tissue mass of the posterior neck. He noted that this mass has increased in size and would like it removed. The risks and benefits of the procedure were discussed with him and consent was obtained prior to the procedure. Findings: Ultrasound used prior to incision to identify presumed lipomas. Lobulated mass excised and further adjacent fibrotic fat excised and sent as specimen. Ultrasound performed at completion of excision without evidence of additional mass. Procedure Description: After initiation of anesthesia the patient was then prepped and draped in sterile fashion. Prior to incision, an additional timeout was performed, which again confirmed the patient's name, date of , and the procedure to be performed, including laterality, and antibiotics were given prior to incision. Prior to initiating the procedure an ultrasound was used to identify the mass. The planned incision was then marked over the mass. Local anesthesia was then injected into the planned incision. A 5cm incision was then made sharply with a scalpel. Dissection was carried through the overlying thickened skin into the subcutaneous tissue. Using a combination of blunt and sharp dissection a lobulated presumed lipoma was identified and excised. This lobulated mass seemed to correlate with the ultrasound finding of multiple small lipomas. An additional area of fibrotic subcutaneous tissue was excised from the lateral aspect of the incision. There was no evidence of an additional palpable mass and repeat ultrasound did not show any further lipomas in this area. Hemostasis was achieved. The incision was then irrigated and closed in layers. First with interrupted deep dermal 3-0 Vicryl sutures and then interrupted 2-0 Prolene sutures to reapproximate the skin. The incision was then covered with a mepilex dressing. At this point, the patient was awoken and transported to the recovery room in stable condition. Sponge and instrument counts were correct. Date of Procedure: 07/21/25
--- NOTE | 2025-07-21 08:49 | W.ANESPOSTOP ---
Postoperative Evaluation Date, Time and Location Date Performed: 07/21/25 Time Performed: 08:49 Patient Location: Day Surgery Unit Vital Signs Most Recent Imported Vital Signs: Most Recent Vital Signs Temp Pulse Resp BP Pulse Ox 36.3 C L 67 14 100/62 95 07/21/25 08:30 07/21/25 08:30 07/21/25 08:30 07/21/25 08:30 07/21/25 08:30 Pain Score Most Recent Pain Score: Most Recent Pain Score Pain Level 0 07/21/25 08:30 Assessment Mental Status: Awake (Alert & Oriented to Patient Baseline) Airway and Respiratory Function: Patent airway with normal (patient baseline) respiratory exam Cardiovascular Function: Hemodynamically Stable Hydration Status: Adequately Hydrated Nausea & Vomiting: No Nausea or Vomiting Pain: Pt. Denies Any Pain Peripheral Nerve Block: Patient did not receive a nerve block
[2025-07-21 09:05] VITALS: BP 111/77; PULSE 51; RESP 16; TEMP 36.2; O2SAT 100
== END 2025-07-21 09:30 | disposition home or self-care (01) ==
PROVIDERS: Visit Provider Student in an Organized Health Care Education/Training Program
PROC: (CPT 21552; principal; 2025-07-21 07:30)
DX: D17.0 Benign lipomatous neoplasm of skin and subcutaneous tissue of head, face and neck (principal)
CPT/HCPCS: 21552; 88304; J0131; J0690; J1100; J1885; J2003; J2405; J2704

== ENCOUNTER → 2025-08-01 09:28 | Outpatient (BNVA) | payer MEDICARE, SELFPAY | PROVIDERS: Visit Provider Student in an Organized Health Care Education/Training Program | DX: Z09 Encounter for follow-up examination after completed treatment for conditions other than malignant neoplasm (principal); D17.0 Benign lipomatous neoplasm of skin and subcutaneous tissue of head, face and neck | CPT/HCPCS: 99024 ==